=== PATIENT | male | born 1955 | race Caucasian/White ===

== ENCOUNTER 2017-12-27 17:05 | Inpatient (IN) | payer BC, OTHER ==
[~2017-12-27] VITALS: Ht 190.5 cm; Wt 142.9 kg
--- NOTE | 2017-12-27 17:56 | DIAGNOSTIC IMAGING REPORT ---
CHEST ONE VIEW PORTABLE CLINICAL HISTORY: 62 years-old Male presenting with CHEST PAIN. TECHNIQUE: Portable upright AP view of the chest was obtained. COMPARISON: None. FINDINGS: Atherosclerosis of aortic arch. Cardiac silhouette moderately enlarged. Pulmonary vascular prominence. No focal opacity. No large effusion or pneumothorax. Degenerative changes of the thoracic spine. Upper abdomen normal. IMPRESSION: 1. Cardiomegaly with possible volume overload. No other convincing evidence of acute cardiopulmonary disease. Electronically signed by: Julien Llamas M.D. 12/27/2017 5:54 PM Dictated Date/Time: 12/27/2017 5:53 PM
[2017-12-27 18:07] LABS: BASO % 0.3 %; BASO ABS # 0.02 K/uL (0-0.2); EOS % 0.5 %; EOS ABS # 0.04 K/uL (0-0.5); HEMATOCRIT 46.3 % (42-52); HEMOGLOBIN 16.1 g/dL (14.0-18.0); IG# 0.01 K/uL (0.00-0.02); LYMPH % 14.5 %; LYMPH ABS # 1.06 K/uL (1.2-3.4); MEAN CELL VOLUME 92.8 fL (80-100); MEAN CORPUSCULAR HEMOGLOBIN 32.3 pg (25-34); MEAN CORPUSCULAR HGB CONC 34.8 g/dl (32-36); MEAN PLATELET VOLUME 10.3 fL (7.4-10.4); MONO % 7.5 %; MONO ABS # 0.55 K/uL (0.11-0.59); NEUT % 77.1 %; NEUT ABS # 5.62 K/uL (1.4-6.5); PLATELET COUNT 184 K/uL (130-400); RED CELL DISTRIBUTION WIDTH CV 13.6 % (11.5-14.5); RED CELL DISTRIBUTION WIDTH SD 46.3 fL (36.4-46.3)
[2017-12-27 18:23] LABS: ALBUMIN 4.1 gm/dl (3.4-5.0); AST/SGOT 38 U/L (15-37); BLOOD UREA NITROGEN 17 mg/dl (7-18); CALCIUM 8.8 mg/dl (8.5-10.1); CARBON DIOXIDE 26 mmol/L (21-32); GLUCOSE 103 mg/dl (70-99); LIPASE 146 U/L (73-393); POTASSIUM 4.5 mmol/L (3.5-5.1); SODIUM 140 mmol/L (136-145)
[2017-12-27 18:28] LABS: ALKALINE PHOSPHATASE 86 U/L (45-117); ALT/SGPT 42 U/L (12-78); TOTAL PROTEIN 7.9 gm/dl (6.4-8.2)
[2017-12-27] MEDS ORDERED: WARF10TA4 PO (18:41)
[2017-12-27 18:49] LABS: INR 4.6 (0.9-1.1); PTT PATIENT 36.8 SECONDS (21.0-31.0)
[2017-12-27] MEDS ORDERED: METOPROLOL TARTRATE 1 MG/ML VIAL IV STA (19:19)
--- NOTE | 2017-12-27 21:39 | EMERGENCY ROOM VISIT NOTE ---
ED Visit Note First contact with patient: 17:15 HPI: 62-year-old gentleman with a remote past medical history of cardiomyopathy in the setting of pneumonia 2002 (which patient reports resolved on subsequent evaluations), A. fib on Coumadin since emergency department with upper abdominal lower chest fullness that began at 1400. Denies shortness of breath, sweating, vomiting, radiation. 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 Plan: EKG afib RVR 150 no gross ischemia, CXR with cardiomegaly and ?vascular prominence however no respiratory sx and 96%RA, Trop negative 4 hours after onset of sx. BNP wnl. INR supratherapeutic 4.6, denies any bleeding. Sx resolved after rate control with Lopressor. GONZALES Fernández paged cardiology on-call , Dr. De León, whom I spoke with as well and recommends/we agree for admission for further cardiac r/o given prior history and no recent cardiology f/u. Patient is agreeable with admission. I performed Bedside echo and views severely limited 2/2 body habitus. STEPHON 10.1mm suggesting mildly reduced EF but again views limited. No gross pericardial effusion. GONZALES Fernández to d/w hospitalist for admission. I reviewed the patient's past medical history, medications, and visit nursing notes. I discussed the case with the physician assistant prosecuting attorney, examined the patient, and agree with the findings and plan as documented in the physician assistants note unless otherwise noted here by me.
--- NOTE | 2017-12-27 21:39 | History and Physical ---
History & Physical Date & Time of Service: December 27, 2017 at 21:39 Chief Complaint: Gi Vpset And Fullness Primary Care Physician: Shlomo Rubio M.D. History of Present Illness Source: patient This is a 62-year-old male history of paroxysmal A. fib dilated cardiomyopathy who has not been following up with cardiology/family practice doctor for last 5- 6 years Diagnosed with atrial fibrillation in 2005, Seen by cardiology Dr. Sidhu Patient stopped following with cardiology and his family physician Last visit with family physician was in 2005 And was prescribed Toprol XL 50 mg daily Stopped taking them after few months as it made him feeling more weak and tired Patient continued with Coumadin anticoagulation Follows with [facility] coagulation clinic Today presents with substernal heaviness discomfort/was eating a sandwich at lunch in a hurry and felt food got stuck The feeling was heaviness and bloating remained persistently As of any chest pain, no nausea vomiting On arrival to ER patient's was in rapid A. fib with heart rate of 150 Given IV Lopressor 5 mg 1 Heart rate improves to 80-90 with persistent rhythm of atrial fibrillation INR 4.1 Will be admitted to telemetry for Further cardiac workup Past Medical/Surgical History Medical Problems: (1) Atrial Fibrillation Surgical Problems: (1) No history of previous surgery Family History FH: heart disease Social History Smoking Status: Never Smoker Multi-Drug Resistant Organisms History of MDRO: No Allergies Coded Allergies: No Known Allergies (Verified , 12/27/17) Home Medications Scheduled Warfarin Sod (Jantoven), 10 MG PO DAILY Review of Systems Constitutional: No fever, No chills, No sweats, No weight loss, No weakness, No fatigue, No problem reported Eyes: No worsening of vision, No eye pain, No redness, No discharge, No diplopia, No problem reported ENT: No hearing loss, No unusual epistaxis, No nasal symptoms, No sore throat, No tinnitus, No dental problems, No trouble swallowing, No problem reported Respiratory: No cough, No sputum, No wheezing, No shortness of breath, No dyspnea on exertion, No dyspnea at rest, No hemoptysis, No problem reported Cardiovascular: + chest pain (Chest heaviness) Abdomen: + nausea Musculoskeletal: No joint pain, No muscle pain, No swelling, No calf pain, No problem reported Genitourinary - Male: No hematuria, No dysuria, No urinary frequency, No urinary urgency, No urinary hesitancy, No urinary retention, No urinary incontinence, No penile discharge, No lesions, No impotence, No problem reported Neurologic: No memory loss, No paralysis, No weakness, No numbness/tingling, No vertigo, No balance problems, No problem reported Psychiatric: No depression symptoms, No anhedonism, No anxiety, No insomnia, No substance abuse, No problem reported Physical Exam Vital Signs Date Time Temp Pulse Resp B/P (MAP) Pulse Ox O2 Delivery O2 Flow Rate FiO2 12/27/17 21:24 83 18 152/112 96 Room Air 12/27/17 20:08 86 18 157/111 96 Room Air 12/27/17 19:48 87 18 151/108 12/27/17 19:35 120 182/108 12/27/17 19:31 120 182/108 12/27/17 18:42 125 129/111 96 Room Air 12/27/17 18:10 120 23 96 Room Air 12/27/17 17:49 138 12/27/17 17:41 97 Room Air 12/27/17 17:09 36.7 114 18 146/77 98 Room Air General Appearance: no apparent distress Head: normocephalic, atraumatic Eyes: sclerae normal Neck: no carotid bruits, trachea midline Respiratory/Chest: + rales Cardiovascular: no murmur, normal peripheral pulses, + irregularly irregular Abdomen/GI: normal bowel sounds, non tender, soft Extremities/Musculoskelatal: no calf tenderness, normal capillary refill, no pedal edema Neurologic/Psych: no motor/sensory deficits, alert, oriented x 3 Diagnostics Laboratory Results Results Past 24 Hours Test 12/27/17 17:55 Range/Units White Blood Count 7.30 4.8-10.8 K/uL Red Blood Count 4.99 4.7-6.1 M/uL Hemoglobin 16.1 14.0-18.0 g/dL Hematocrit 46.3 42-52 % Mean Corpuscular Volume 92.8 80-100 fL Mean Corpuscular Hemoglobin 32.3 25-34 pg Mean Corpuscular Hemoglobin Concent 34.8 32-36 g/dl Platelet Count 184 130-400 K/uL Mean Platelet Volume 10.3 7.4-10.4 fL Neutrophils (%) (Auto) 77.1 % Lymphocytes (%) (Auto) 14.5 % Monocytes (%) (Auto) 7.5 % Eosinophils (%) (Auto) 0.5 % Basophils (%) (Auto) 0.3 % Neutrophils # (Auto) 5.62 1.4-6.5 K/uL Lymphocytes # (Auto) 1.06 1.2-3.4 K/uL Monocytes # (Auto) 0.55 0.11-0.59 K/uL Eosinophils # (Auto) 0.04 0-0.5 K/uL Basophils # (Auto) 0.02 0-0.2 K/uL RDW Standard Deviation 46.3 36.4-46.3 fL RDW Coefficient of Variation 13.6 11.5-14.5 % Immature Granulocyte % (Auto) 0.1 % Immature Granulocyte # (Auto) 0.01 0.00-0.02 K/uL Prothrombin Time 46.4 9.0-12.0 SECONDS Prothromb Time International Ratio 4.6 0.9-1.1 Activated Partial Thromboplast Time 36.8 21.0-31.0 SECONDS Partial Thromboplastin Ratio 1.4 D-Dimer < 190 0-500 ug/L FEU Sodium Level 140 136-145 mmol/L Potassium Level 4.5 3.5-5.1 mmol/L Chloride Level 108 98-107 mmol/L Carbon Dioxide Level 26 21-32 mmol/L Anion Gap 6.0 3-11 mmol/L Blood Urea Nitrogen 17 7-18 mg/dl Creatinine 1.10 0.60-1.40 mg/dl Est Creatinine Clear Calc Drug Dose 107.6 ml/min Estimated GFR () 83.5 Estimated GFR (Non- 72.1 BUN/Creatinine Ratio 15.5 10-20 Random Glucose 103 70-99 mg/dl Calcium Level 8.8 8.5-10.1 mg/dl Magnesium Level 2.0 1.8-2.4 mg/dl Total Bilirubin 0.5 0.2-1 mg/dl Direct Bilirubin 0.2 0-0.2 mg/dl Aspartate Amino Transf (AST/SGOT) 38 15-37 U/L Alanine Aminotransferase (ALT/SGPT) 42 12-78 U/L Alkaline Phosphatase 86 45-117 U/L Total Creatine Kinase 235 39-308 U/L Troponin I < 0.015 0-0.045 ng/ml Pro-B-Type Natriuretic Peptide 432 0-900 pg/ml Total Protein 7.9 6.4-8.2 gm/dl Albumin 4.1 3.4-5.0 gm/dl Lipase 146 73-393 U/L Diagnostic Radiology CHEST ONE VIEW PORTABLE CLINICAL HISTORY: 62 years-old Male presenting with CHEST PAIN. TECHNIQUE: Portable upright AP view of the chest was obtained. COMPARISON: None. FINDINGS: Atherosclerosis of aortic arch. Cardiac silhouette moderately enlarged. Pulmonary vascular prominence. No focal opacity. No large effusion or pneumothorax. Degenerative changes of the thoracic spine. Upper abdomen normal. IMPRESSION: 1. Cardiomegaly with possible volume overload. No other convincing evidence of acute cardiopulmonary disease. EKG Atrial fibrillation Left anterior fascicular block Cannot rule out Inferior infarct (masked by fascicular block?) , age undetermined Cannot rule out Anterior infarct , age undetermined Abnormal ECG When compared with ECG of 27-DEC-2017 17:40, (unconfirmed) Vent. rate has decreased BY 51 BPM Nonspecific T wave abnormality now evident in Inferior leads Nonspecific T wave abnormality no longer evident in Lateral leads Impression Assessment and Plan AFIB RVR : hx of chronic A. fib dilated cardiomyopathy dx in 2005 has not been followed with Cardiology for the past 12yrs Chronic A. fib refractory to DC cardioversion, and was treated with amiodarone for a few months, was discontinued and started with beta-steven for concern of pulmonary toxicity/started on Toprol-XL 50 mg daily On anticoagulation with Coumadin Echo on 08/17/2005: 1. Study done with patient in atrial fibrillation. 2. Ventricular wall motion and overall left ventricular systolic function are on the lower limit of normal, estimated ejection fraction 45-50% 3. No segmental left ventricular wall motion abnormality noted 4. Left ventricular is mildly enlarged 5. Left atrium is slightly enlarged 6. Trace mitral regurgitation with no definite structural abnormalities of the mitral valve apparatus Cardiac stress test on 03/13/2006: Resting EKG rhythm atrial fibrillation, nonspecific ST-T wave abnormalities Patient had no chest pain or other anginal symptoms. Exercise limited by generalized fatigue Patient exercised using a standard Serge protocol for a total of 8 minutes with maximum exercise for 2 minutes at 3.5 mph with 14% grade Maximum heart rate achieved 2 oh 3 bpm representing 119% of the maximum age- predicted heart rate Maximum BP with exercise 168/74 Atrial fibrillation persisted throughout exercise: There was no episode of aberrant ventricular response Conclusion No definite stress EKG finding to suggest exercise-induced myocardial infarction ordered for Lopressor 25 mg PO QID PRN IV Lopressor for HR > 100 hold Coumadin as INR > 4 serial cardiac markers /ECHO ordered cardiology consulted NPO past midnight for possible cardioversion in AM COAGULOPATHY : Patient been taking Coumadin as per directed by maryann porter given including There is elevated but then f4 No evidence of bleeding complication Hold Coumadin PT/INR daily ALCOHOL ABUSE Admits of drinking heavily -5-6 glasses of alcohol ("all sorts of drink"-beer/ wine/vodka) Last drink was yesterday Denies of being anxious/no tremor noted Denies of alcohol withdrawal episode in past Patient is placed on DT precaution IV Ativan as per alcohol withdrawal/AW SS protocol Neurontin avoided in the setting of cardiac arrhythmia Order for thiamine p.o. Banana bag not ordered at his chest x-ray shows pulmonary congestion High-risk for decompensated CHF in the setting of chronic/rapid A. fib Patient is counseled against heavy alcohol use which may lead to End-stage liver disease/alcoholic cardiomyopathy/refractory cardiac arrhythmia/ stroke Patient wants to try himself to quit Not open for alcohol rehab CODE STATUS : FULL CODE DVT PROPHYLAXIS INR elevated DISPOSITION ; Expect to be discharged home when medically stable Medicine follow-up with Dr. Rubio Patient will need to established follow-ups with [facility] cardiology Level of Care Telemetry Resuscitation Status FULL RESUSCITATION VTE Prophylaxis Given or contraindicated: Other Anticoagulation (IV HEPARIN )
[2017-12-27] MEDS ORDERED: ALUMINUM/MAGNESIUM/SIMETH (MAALOX MAX) 30 ML UDC PO PRN (21:45)
[2017-12-27] MEDS ORDERED: MAGNESIUM HYDROXIDE SUSP 30 ML UDC PO PRN (21:45)
[2017-12-27] MEDS ORDERED: NITROGLYCERIN 0.4 MG SL PER TAB CHARGE SL PRN (21:45)
[2017-12-27] MEDS ORDERED: ONDANSETRON INJ 2 MG/ML 2 ML VIAL IV PRN (21:45)
[2017-12-27] MEDS ORDERED: POLYETHYLENE (MIRALAX) 17 GM PACK PO PRN (21:45)
[2017-12-27] MEDS ORDERED: METOPROLOL TARTRATE 1 MG/ML VIAL IV PRN (21:45)
[2017-12-27] MEDS ORDERED: ACETAMINOPHEN 325 MG TAB PO PRN (21:45)
[2017-12-27 22:34] VITALS: BP 159/99; PULSE 84; TEMP 36.7; O2SAT 98; Ht 190.5 cm; Wt 142.9 kg
[2017-12-27] MEDS ORDERED: LORAZEPAM 2 MG/ML 1 ML VIAL IV PRN (22:45)
--- NOTE | 2017-12-27 23:17 | EMERGENCY ROOM VISIT NOTE ---
History First contact with patient: 17:15 Chief Complaint: GI ASSESSMENT Stated Complaint: GI VPSET AND FULLNESS Nursing Triage Summary: Ate a sandwich at 1400 and has felt "a fullness in his esophagus" since then. Hx of a fib, worried it is related. Also c/o tingling in left evangelical, though denies headache. Denies CP or dyspnea. History of Present Illness The patient is a 62 year old male who presents to the Emergency Room with complaints of chest fullness after eating lunch approximately 3.5 hours ago. The patient reports that he and his were in a hurry, and ate lunch prickly. Within approximately 1-1/2 hours after eating, he started to develop this discomfort. He denies pressure or pain, describing it as "a fullness". The patient reports a history of atrial fibrillation. He has not had any cardiology follow-up in several years. His family doctor is Dr. Rubio. The patient takes Coumadin 10 mg daily, and reports that his INR levels have been variable. The patient reports that he did a lot of yard work this morning without any discomfort. He denies any discomfort radiating into the back, abdomen or neck. He denies shortness of breath, nausea or diaphoresis. The patient currently denies any pain. Review of Systems HEENT: Denies dizziness, visual problems, hearing loss, tinnitus. Denies difficulty swallowing or oral lesions. PULMONARY: Denies cough, shortness of breath, sputum production or hemoptysis. CARDIOVASCULAR: Denies palpitations, dyspnea on exertion, orthopnea or peripheral edema. Otherwise see HPI. GASTROINTESTINAL: Denies diarrhea, constipation, nausea, vomiting, or abdominal pain. GENITOURINARY: Denies dysuria, frequency, urgency or nocturia. NEUROLOGIC: Denies history of epilepsy, CVA, TIA or chronic headaches. MUSCULOSKELETAL: Denies history of joint tenderness/swelling. SKIN: Denies rashes or lesions. PSYCHIATRIC: Denies history of depression or mental illness. ENDOCRINE: Denies history of diabetes or thyroid disorders. Past Medical/Surgical History Medical Problems: (1) A-fib (2) Atrial Fibrillation Surgical Problems: (1) No history of previous surgery Family History FH: heart disease Social History Smoking Status: Never Smoker Alcohol Use: occasionally Marital Status: Occupation Status: unemployed Current/Historical Medications Scheduled Warfarin Sod (Jantoven), 10 MG PO DAILY Physical Exam Vital Signs Date Time Temp Pulse Resp B/P (MAP) Pulse Ox O2 Delivery O2 Flow Rate FiO2 12/27/17 21:24 83 18 152/112 96 Room Air 12/27/17 20:08 86 18 157/111 96 Room Air 12/27/17 19:48 87 18 151/108 12/27/17 19:35 120 182/108 12/27/17 19:31 120 182/108 12/27/17 18:42 125 129/111 96 Room Air 12/27/17 18:10 120 23 96 Room Air 12/27/17 17:49 138 12/27/17 17:41 97 Room Air 12/27/17 17:09 36.7 114 18 146/77 98 Room Air Physical Exam CONSTITUTIONAL: Healthy and well nourished. Alert and oriented X 3 with positive affect. Patient does not appear in any acute distress. HEENT: Normocephalic, atraumatic. Pupils equal, round and reactive. No conjunctival injection/pallor or scleral icterus. NECK: Full active range of motion without discomfort. No JVD or carotid bruits appreciated. RESPIRATORY: Clear to auscultation bilaterally with no wheezing, crackles, rhonchi or stridor. CARDIOVASCULAR: Irregular rate and rhythm with no murmurs, rubs or gallops. GASTROINTESTINAL: Bowel sounds present in all quadrants. No epigastric tenderness to palpation. No obvious hepatosplenomegaly. Negative CVA tenderness. Negative Evans sign. MUSCULOSKELETAL: Full range of motion of all joints without discomfort. INTEGUMENTARY: No rash or other significant dermatologic conditions noted. HEMATOLOGIC: No ecchymosis or petechiae noted. NEUROLOGIC: No focal neurologic deficits noted. Medical Decision & Procedures ER Provider Diagnostic Interpretation: My interpretation of an ECG shows atrial fibrillation with a rapid ventricular response of [address] elevations noted. A repeat ECG approximately 2 hours after she was a decreased rate of 100 bpm. My interpretation of a portable chest x-ray shows cardiomegaly with possible volume overload. No pneumothorax or consolidations noted. Radiologist report is as follows: CHEST ONE VIEW PORTABLE CLINICAL HISTORY: 62 years-old Male presenting with CHEST PAIN. TECHNIQUE: Portable upright AP view of the chest was obtained. COMPARISON: None. FINDINGS: Atherosclerosis of aortic arch. Cardiac silhouette moderately enlarged. Pulmonary vascular prominence. No focal opacity. No large effusion or pneumothorax. Degenerative changes of the thoracic spine. Upper abdomen normal. IMPRESSION: 1. Cardiomegaly with possible volume overload. No other convincing evidence of acute cardiopulmonary disease. Laboratory Results 12/27/17 17:55 Red Blood Count 4.99, Mean Corpuscular Volume 92.8, Mean Corpuscular Hemoglobin 32.3, Mean Corpuscular Hemoglobin Concent 34.8, Mean Platelet Volume 10.3, Neutrophils (%) (Auto) 77.1, Lymphocytes (%) (Auto) 14.5, Monocytes (%) (Auto) 7.5, Eosinophils (%) (Auto) 0.5, Basophils (%) (Auto) 0.3, Neutrophils # (Auto) 5.62, Lymphocytes # (Auto) 1.06, Monocytes # (Auto) 0.55, Eosinophils # (Auto) 0.04, Basophils # (Auto) 0.02 12/27/17 17:55 Test 12/27/17 17:55 White Blood Count 7.30 K/uL (4.8-10.8) Red Blood Count 4.99 M/uL (4.7-6.1) Hemoglobin 16.1 g/dL (14.0-18.0) Hematocrit 46.3 % (42-52) Mean Corpuscular Volume 92.8 fL (80-100) Mean Corpuscular Hemoglobin 32.3 pg (25-34) Mean Corpuscular Hemoglobin Concent 34.8 g/dl (32-36) Platelet Count 184 K/uL (130-400) Mean Platelet Volume 10.3 fL (7.4-10.4) Neutrophils (%) (Auto) 77.1 % Lymphocytes (%) (Auto) 14.5 % Monocytes (%) (Auto) 7.5 % Eosinophils (%) (Auto) 0.5 % Basophils (%) (Auto) 0.3 % Neutrophils # (Auto) 5.62 K/uL (1.4-6.5) Lymphocytes # (Auto) 1.06 K/uL (1.2-3.4) Monocytes # (Auto) 0.55 K/uL (0.11-0.59) Eosinophils # (Auto) 0.04 K/uL (0-0.5) Basophils # (Auto) 0.02 K/uL (0-0.2) RDW Standard Deviation 46.3 fL (36.4-46.3) RDW Coefficient of Variation 13.6 % (11.5-14.5) Immature Granulocyte % (Auto) 0.1 % Immature Granulocyte # (Auto) 0.01 K/uL (0.00-0.02) Prothrombin Time 46.4 SECONDS (9.0-12.0) Prothromb Time International Ratio 4.6 (0.9-1.1) Activated Partial Thromboplast Time 36.8 SECONDS (21.0-31.0) Partial Thromboplastin Ratio 1.4 D-Dimer < 190 ug/L FEU (0-500) Anion Gap 6.0 mmol/L (3-11) Est Creatinine Clear Calc Drug Dose 107.6 ml/min Estimated GFR () 83.5 Estimated GFR (Non- 72.1 BUN/Creatinine Ratio 15.5 (10-20) Calcium Level 8.8 mg/dl (8.5-10.1) Magnesium Level 2.0 mg/dl (1.8-2.4) Total Bilirubin 0.5 mg/dl (0.2-1) Direct Bilirubin 0.2 mg/dl (0-0.2) Aspartate Amino Transf (AST/SGOT) 38 U/L (15-37) Alanine Aminotransferase (ALT/SGPT) 42 U/L (12-78) Alkaline Phosphatase 86 U/L (45-117) Total Creatine Kinase 235 U/L (39-308) Troponin I < 0.015 ng/ml (0-0.045) Pro-B-Type Natriuretic Peptide 432 pg/ml (0-900) Total Protein 7.9 gm/dl (6.4-8.2) Albumin 4.1 gm/dl (3.4-5.0) Lipase 146 U/L (73-393) The above labs were reviewed. Repeat troponin II hours apart were normal. D- dimer and BNP are normal. Remaining labs were also grossly normal. Medications Administered Medications (Trade) Dose Ordered Sig/Willis Route Start Time Stop Time Status Last Admin Dose Admin Metoprolol Tartrate (Lopressor Iv) 5 mg NOW STAT IV 12/27/17 19:19 12/27/17 19:22 DC 12/27/17 19:31 5 MG ED Course Patient history and physical exam were performed. Nurse's notes were reviewed. Vital signs were reviewed the patient is mildly tachycardic at 114 bpm. BP is mildly elevated at 146/77, and O2 saturation is normal. IV access was established, and labs were drawn. ECG shows atrial fibrillation with rapid ventricular response at 151 bpm. A portable chest x-ray shows possible volume overload and cardiomegaly. Labs were reviewed to show a normal BNP, d-dimer and troponin that was repeated 2 hours apart. Repeat ECG at 2 hours was also normal. Portable chest x-ray shows cardiomegaly with possible volume overload. 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 The case was discussed further with Dr. Liu, ED attending physician. The patient was administered Lopressor 5 mg IV. This reduced his heart rate to between 80 and 100 bpm. The patient remained asymptomatic while in the emergency department. After case review, Dr. Liu suggested cardiology consultation. Dr. Liu also evaluated the patient and performed a bedside echocardiogram. I discussed the case further with Hugo Esposito printer slotter operator, who also discussed the case further with Dr. Liu, and suggested hospitalist evaluation. The case was then discussed with the Hugo Nowak hospitalist team. Please see their dictation for further treatment and final disposition. Medical Decision Patient presents to the emergency department with complaint of chest fullness after eating lunch this afternoon. The patient reports that he was very active this morning, doing yard work and did not have any chest discomfort. His workup this evening is not suggestive of acute myocardial infarction, pulmonary embolus, pneumothorax or pneumonia. The patient does have volume overload and cardiomegaly, as well as atrial fibrillation with rapid ventricular response. Review of prior medical records shows that the patient has had prior cardiomyopathy with ejection fraction of 35% with the patient reports was attributed to a pneumonia. He reports that his echocardiogram did improve over time. Unfortunately, the patient has not had regular follow-up with his PCP or printer slotter operator. The patient is also supratherapeutic with his Coumadin level. Medication Reconcilliation Current Medication List: was personally reviewed by me Blood Pressure Screening Patient's blood pressure: Elevated blood pressure Impression Primary Impression: Atrial fibrillation with rapid ventricular response Additional Impressions: Elevated blood pressure reading with diagnosis of hypertension Supratherapeutic INR Departure Information Referrals Andrés Johnson Jr,D.O. (PCP) Patient Instructions [facility] Problem Qualifiers
[2017-12-27] MEDS: THIAMINE HCL 100 MG TAB PO SCH (23:21)
[2017-12-27] MEDS: METOPROLOL TARTRATE 25 MG TAB PO SCH (23:22)
[2017-12-27 23:38] VITALS: BP 159/91; PULSE 73; TEMP 36.5; O2SAT 95
[2017-12-27 23:41] LABS: PHOSPHORUS 2.5 mg/dl (2.5-4.9)
[2017-12-28 03:49] VITALS: BP 136/91; PULSE 59; TEMP 36.6; O2SAT 98
[2017-12-28 06:44] LABS: INR 3.9 (0.9-1.1)
[2017-12-28 07:01] VITALS: BP 157/91; PULSE 63; TEMP 36.8; O2SAT 98
[2017-12-28 07:03] LABS: BLOOD UREA NITROGEN 15 mg/dl (7-18); CALCIUM 8.8 mg/dl (8.5-10.1); CARBON DIOXIDE 29 mmol/L (21-32); CREATININE 1.01 mg/dl (0.60-1.40); GLUCOSE 103 mg/dl (70-99); POTASSIUM 4.1 mmol/L (3.5-5.1); SODIUM 142 mmol/L (136-145)
[2017-12-28 07:08] LABS: CHOLESTEROL 166 mg/dl (0-200); LDL CHOLESTEROL CALCULATED 90 mg/dl; PHOSPHORUS 2.7 mg/dl (2.5-4.9)
--- NOTE | 2017-12-28 07:25 | DIAGNOSTIC IMAGING REPORT ---
CHEST ONE VIEW PORTABLE CLINICAL HISTORY: Atrial Fibrillation/chf COMPARISON STUDY: 12/27/2017 FINDINGS: The heart remains enlarged. There is no focal pulmonary consolidation. There are no pleural effusions. There is slight vascular prominence without evidence of overt failure. IMPRESSION: Stable cardiomegaly. No evidence of focal pulmonary consolidation Electronically signed by: Arya Sheehan M.D. 12/28/2017 7:24 AM Dictated Date/Time: 12/28/2017 7:23 AM
[2017-12-28] MEDS: METOPROLOL TARTRATE 25 MG TAB PO SCH (08:17)
[2017-12-28] MEDS: THIAMINE HCL 100 MG TAB PO SCH (08:18)
--- NOTE | 2017-12-28 08:42 | ECHOCARDIOGRAM REPORT ---
*NOTICE TO RECEIVING LIBERTARIAN AGENCY This information is strictly Confidential and protected under [place] law. [place] law prohibits you from making any further disclosure of this information unless further disclosure is expressly permitted by the written consent of the person to whom it pertains or is authorized by law. A general authorization for the release of medical or other information is not sufficient for this purpose. Hospital accepts no responsibility if the information is made available to any other person, INCLUDING THE PATIENT. Interpretation Summary * Name: JOSEFA HULL Study Date: 12/28/2017 06:32 AM BP: 136/91 mmHg * Patient Location: [facility] HR: 59 * : 1955 (M/d/yyyy) Gender: Male Height: 75 in * Age: 62 yrs Ethnicity: CA Weight: 315 lb * Ordering Physician: Cherelle Byrnes * Performed By: Yasmin Hilton RDCS * * Reason For Study: A-FIB * BSA: 2.7 m2 * -- Conclusions -- * Technically difficult study due to patient body habitus. * Normal LV chamber size with mild concentric LVH. * Normal LV systolic function, EF 55-60%. * No segmental left ventricular wall motion abnormalities are noted. * Poorly visualized valvular structures without significant stenosis or regurgitation by Doppler. Procedure Details * A complete two-dimensional transthoracic echocardiogram was performed (2D, M-mode, Doppler and color flow Doppler). * The study was technically difficult. * There were technical limitations due to patient'sbody habitus * A contrast injection of Definity was performed to improve assessment of LV function. * Contrast was injected into an intravenous site in the left arm. * One vial of Definity ultrasound contrast was diluted in normal saline to a total volume of 10 ml. A total of '3.5' ml of solution was administered during imaging. * Lot # [id number] of Definity utilized for procedure. * Expiration date 12/06. Left Ventricle * The left ventricle is normal in size. * There is mild concentric left ventricular hypertrophy. * Ejection Fraction = 55-60%. * Left ventricular systolic function is normal. * No segmental left ventricular wall motion abnormalities are noted. * The left ventricular wall motion is normal. Right Ventricle * The right ventricular cavity size is normal (basal dimension <4.2 cm in right ventricular apical 4-chamber view). * The right ventricular systolic function is normal as assessed by tricuspid annular plane systolic excursion (TAPSE) (normal >1.5 cm). Atria * The left atrium is not well visualized. * Right atrium not well visualized. Mitral Valve * The mitral valve is not well visualized. * There is no mitral valve stenosis. * There is no mitral regurgitation noted. Tricuspid Valve * The tricuspid valve is not well visualized. * There is no tricuspid stenosis. * No tricuspid regurgitation. Aortic Valve * The aortic valve is not well visualized. * No hemodynamically significant valvular aortic stenosis. * There is no significant aortic regurgitation. Pulmonic Valve * The pulmonary valve is not well seen, but the Doppler examination is normal without significant regurgitation or stenosis. Great Vessels * The aortic root is normal size. Pericardium/Pleural * There is no pericardial effusion. MMode 2D Measurements and Calculations IVSd 1.2 cm IVSs 1.7 cm LVIDd 5.7 cm LVIDs 3.7 cm LVPWd 1.1 cm LVPWs 2.6 cm IVS/LVPW 1.0 FS 35.1 % EDV(Teich) 163.1 ml ESV(Teich) 59.3 ml EF(Teich) 63.6 % EDV(cubed) 189.8 ml ESV(cubed) 51.9 ml EF(cubed) 72.6 % % IVS thick 50.8 % % LVPW thick 127.5 % LV mass(C)d 275.7 grams LV mass(C)dI 103.6 grams/m\S\2 LV mass(C)s 393.9 grams LV mass(C)sI 148.0 grams/m\S\2 SV(Teich) 103.8 ml SI(Teich) 39.0 ml/m\S\2 SV(cubed) 137.9 ml SI(cubed) 51.8 ml/m\S\2 asc Aorta Diam 3.4 cm LVOT diam 2.1 cm LVOT area 3.6 cm\S\2 LVAd ap4 49.2 cm\S\2 LVLd ap4 10.1 cm EDV(MOD-sp4) 196.0 ml EDV(sp4-el) 203.7 ml LVAs ap4 26.4 cm\S\2 LVLs ap4 7.7 cm ESV(MOD-sp4) 74.8 ml ESV(sp4-el) 76.9 ml EF(MOD-sp4) 61.8 % EF(sp4-el) 62.3 % LVAd ap2 29.1 cm\S\2 LVLd ap2 8.6 cm EDV(MOD-sp2) 80.8 ml EDV(sp2-el) 83.8 ml LVAs ap2 15.8 cm\S\2 LVLs ap2 6.7 cm ESV(MOD-sp2) 30.1 ml ESV(sp2-el) 31.6 ml EF(MOD-sp2) 62.7 % EF(sp2-el) 62.3 % LVLd %diff -17.47 % EDV(MOD-bp) 135.8 ml LVLs %diff -14.93 % ESV(MOD-bp) 49.8 ml EF(MOD-bp) 63.4 % SV(MOD-sp4) 121.2 ml SI(MOD-sp4) 45.5 ml/m\S\2 SV(MOD-sp2) 50.6 ml SI(MOD-sp2) 19.0 ml/m\S\2 SV(MOD-bp) 86.1 ml SI(MOD-bp) 32.3 ml/m\S\2 SV(sp4-el) 126.8 ml SI(sp4-el) 47.7 ml/m\S\2 SV(sp2-el) 52.2 ml SI(sp2-el) 19.6 ml/m\S\2 Doppler Measurements and Calculations MV E max yvonne 97.0 cm/sec MV dec time 0.25 sec Ao V2 max 123.4 cm/sec Ao max PG 6.1 mmHg Ao max PG (full) 3.1 mmHg LIA(V,A) 2.5 cm\S\2 LIA(V,D) 2.5 cm\S\2 LV V1 max PG 3.0 mmHg LV V1 max 87.0 cm/sec PA V2 max 132.1 cm/sec PA max PG 8.5 mmHg TR max yvonne 246.8 cm/sec
[2017-12-28] MEDS ORDERED: ASPIRIN 81 MG ECTAB PO SCH (09:00)
[2017-12-28] MEDS ORDERED: LISINOPRIL 5 MG TAB PO ONE (10:45)
[2017-12-28 11:50] VITALS: BP 167/101; PULSE 60; TEMP 36.4; O2SAT 90
--- NOTE | 2017-12-28 14:15 | EXERCISE STRESS ECHO ---
*NOTICE TO RECEIVING GREEN PARTY AGENCY This information is strictly Confidential and protected under [place] law. [place] law prohibits you from making any further disclosure of this information unless further disclosure is expressly permitted by the written consent of the person to whom it pertains or is authorized by law. A general authorization for the release of medical or other information is not sufficient for this purpose. Hospital accepts no responsibility if the information is made available to any other person, INCLUDING THE PATIENT. Interpretation Summary * Name: JOSEFA HULL Study Date: 12/28/2017 11:17 AM BP: 152/88 mmHg * Patient Location: C.2T\S\S241\S\1 HR: 83 * : 1955 (M/d/yyyy) Gender: Male Height: 75 in * Age: 62 yrs Ethnicity: CA Weight: 315 lb * Ordering Physician: Arslan De León DO * Performed By: Yasmin Hilton RDCS * * Reason For Study: CHEST PAIN * BSA: 2.7 m2 * -- Conclusions -- * Nonischemic exercise stress echocardiogram. * No arrhythmias. * Normal HR and BP response to exercise. * Chest pain was not reproduced. * Below average exercise tolerance. Procedure Details * A contrast injection of Definity was performed to improve assessment of LV function. * Contrast was injected into an intravenous site in the left arm. * One vial of Definity ultrasound contrast was diluted in normal saline to a total volume of 10 ml. A total of '4' ml of solution was administered during imaging. * Lot # [id number] of Definity utilized for procedure. * Expiration date 12/06. * The attending nurse who injected the contrast agent was OTIS MORGAN RN. Stress Parameters * The stress portion of this study was personally supervised by the undersigned interpreting physician. * Rest heart rate was '83' BPM. * Rest blood pressure was '152/88' * Maximum heart rate achieved was 184 bpm. * Maximum heart rate was 115 % of maximum age-predicted heart rate. * Maximum blood pressure was '160/70' * Total exercise time was '6:00' * Maximum exercise MET level achieved was '7.0' METS * Maximum treadmill speed was '2.50' miles per hour. * Maximum treadmill elevation was '12.00'% grade. * Exercise was terminated due to 'target heart rate achieved' * Target heart rate achieved. No symptoms.
--- NOTE | 2017-12-28 14:40 | CARDIOLOGY CONSULTATION ---
DATE OF CONSULTATION: 12/28/2017 CONSULTATION REQUESTED BY: Rik Fernández PA-C REASON FOR CONSULTATION: Chest pain and chronic atrial fibrillation. 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 Sidhu in 2007. He presented to [facility] on 12/27/2017 with a complaint of several hours of chest discomfort. The patient states that he and his are very active in their yard yesterday, on the , doing multiple activities and yard work. While doing yard work, he ate a sandwich and he thinks he might have been eaten a little too fast and shortly thereafter developed chest pressure. He described it as a heaviness in his mid substernal area that did not really radiate, but was associated with some mild nausea. He states that it persisted for several hours even after he stopped work. There is no significant waxing or waning. It just came and stayed there. He denied any associated radiation of the discomfort, shortness of breath, diaphoresis, palpitations, lightheadedness, dizziness, or syncope. After several hours, he became concerned and came into the Emergency Department. In the Emergency Department, he was found to be in atrial fibrillation at 150 beats per minute. He was given IV Lopressor x1 and his symptoms resolved. Currently, he is without complaint at rest and has had no issues overnight. I did discuss the case with both Rik Fernández PA-C as well as Dr. Liu and recommend the patient be admitted. PAST SURGICAL HISTORY: [place] tooth extraction. MEDICAL ILLNESSES: Persistent atrial fibrillation, on chronic Coumadin therapy. SOCIAL HISTORY: Denies any tobacco use. Drinks approximately 5 alcoholic beverages a day either beer, wine, or vodka. He is and lives at home with his . He has 2 grown boys who are in good health. 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 He has just started exercising on a regular basis. REVIEW OF SYSTEMS: As per HPI. All review of systems are reviewed and negative at this time. ALLERGIES: SULFA. MEDICATIONS AN OUTPATIENT: Currently, the patient is only taking Coumadin as directed by the Coumadin clinic. He was previously prescribed Lopressor and simvastatin which he discontinued after feeling well several years ago. PHYSICAL EXAMINATION: VITALS: Temperature 36.4, pulse 60, respiratory rate 12, blood pressure 167/101. GENERAL: Awake, alert, and oriented x3, in no acute distress. HEENT: Normocephalic, atraumatic. Pupils equal, round, and reactive to light and accommodation. Extraocular muscles intact. Anicteric sclerae. Moist mucous membranes. NECK: No JVD, no bruit. CARDIOVASCULAR: Irregularly irregular. I do not appreciate any murmurs, rubs, or gallops. PULMONARY: Clear to auscultation bilaterally. No rales, rhonchi, or wheezing. ABDOMEN: Bowel sounds x4, soft. No rebound, guarding, tenderness. No organomegaly. EXTREMITIES: No clubbing, cyanosis, or edema. +2 pedal pulses bilaterally. SKIN: Warm and dry. TEST RESULTS: A 12-lead EKG performed in the Emergency Department independently reviewed at this time, shows atrial fibrillation with rapid ventricular response at 150 beats per minute, left anterior fascicular block, no significant signs of ischemia. Repeat EKG at 1919 in the Emergency Room again shows atrial fibrillation at 100 beats per minute, left anterior fascicular block, no signs of active ischemia. LABORATORY STUDIES OF SIGNIFICANCE: Troponin negative x3. Total cholesterol of 166, LDL 90, HDL 57, triglycerides 96. IMPRESSION: 1. Chest discomfort with a nonischemic exercise stress echocardiogram. 2. Chronic atrial fibrillation, on chronic Coumadin therapy. 3. Refugee from medical care. RECOMMENDATIONS: It was my pleasure to see Dr. Grissom in consultation today. The patient was counseled given the fact that stress test was nonischemic, that his chest discomfort does not appear to be cardiac in nature, so no further cardiac testing or intervention is necessary at this time. He was encouraged to continue exercising and reduce his alcohol consumption. In terms of his atrial fibrillation, the patient stopped his metoprolol several years ago and has not been seen by a whitewater rafting guide in 20 years. Likely his LV systolic function at rest is normal and he is asymptomatic, so there does not appear to be any complications from this. So at this point, I would like to see a little bit better rate control, so he has been started on metoprolol in the hospital, we will change it to metoprolol succinate 25 mg daily on discharge and I will follow up with him as an outpatient for further control. At the same time, his cholesterol is actually rather well-controlled, so we will hold off on statin therapy given the fact that he did have myalgias with higher dose of simvastatin in the past. Otherwise, I will see him in my office in followup in approximately 3 months. My office will call to arrange. It is okay to discharge the patient to home from a cardiac standpoint. The patient was told in no uncertain terms he absolutely must establish with a primary care physician for his overall wellbeing given the fact he is a 61-year-old male who has not had a PSA, hemoglobin A1c, or colonoscopy and needs preventative care.
[2017-12-28 15:00] VITALS: BP 142/85; PULSE 83; TEMP 36.4; O2SAT 96
--- NOTE | 2017-12-28 16:13 | Progress Note ---
Medicine Progress Note Date & Time of Visit: December 28, 2017 at 16:13 . Subjective Feels well. No chest pain or shortness of breath. Stress test went well. Would like to go home. . Objective Last 8 Hrs Date Time Temp Pulse Resp B/P (MAP) Pulse Ox O2 Delivery O2 Flow Rate FiO2 12/28/17 15:00 36.4 83 18 142/85 (104) 96 Room Air 12/28/17 12:27 Room Air 12/28/17 11:50 36.4 60 20 167/101 (123) 90 Room Air Physical Exam: General- no distress Lungs- clear to auscultation; no respiratory distress Cardiovascular- irregular; no murmur or gallop appreciated; no JVD; no pretibial edema Abdomen- + bowel sounds, soft, nontender Extremities- no cyanosis; no calf tenderness Neuro- alert, oriented Skin- warm & dry . Laboratory Results: Last 24 Hours Test 12/27/17 17:55 12/27/17 23:07 12/28/17 05:50 12/28/17 06:07 White Blood Count 7.30 K/uL Red Blood Count 4.99 M/uL Hemoglobin 16.1 g/dL Hematocrit 46.3 % Mean Corpuscular Volume 92.8 fL Mean Corpuscular Hemoglobin 32.3 pg Mean Corpuscular Hemoglobin Concent 34.8 g/dl Platelet Count 184 K/uL Mean Platelet Volume 10.3 fL Neutrophils (%) (Auto) 77.1 % Lymphocytes (%) (Auto) 14.5 % Monocytes (%) (Auto) 7.5 % Eosinophils (%) (Auto) 0.5 % Basophils (%) (Auto) 0.3 % Neutrophils # (Auto) 5.62 K/uL Lymphocytes # (Auto) 1.06 K/uL Monocytes # (Auto) 0.55 K/uL Eosinophils # (Auto) 0.04 K/uL Basophils # (Auto) 0.02 K/uL RDW Standard Deviation 46.3 fL RDW Coefficient of Variation 13.6 % Immature Granulocyte % (Auto) 0.1 % Immature Granulocyte # (Auto) 0.01 K/uL Prothrombin Time 46.4 SECONDS 39.8 SECONDS Prothromb Time International Ratio 4.6 3.9 Activated Partial Thromboplast Time 36.8 SECONDS Partial Thromboplastin Ratio 1.4 D-Dimer < 190 ug/L FEU Sodium Level 140 mmol/L 142 mmol/L Potassium Level 4.5 mmol/L 4.1 mmol/L Chloride Level 108 mmol/L 108 mmol/L Carbon Dioxide Level 26 mmol/L 29 mmol/L Anion Gap 6.0 mmol/L 5.0 mmol/L Blood Urea Nitrogen 17 mg/dl 15 mg/dl Creatinine 1.10 mg/dl 1.01 mg/dl Est Creatinine Clear Calc Drug Dose 107.6 ml/min 117.2 ml/min Estimated GFR () 83.5 92.6 Estimated GFR (Non- 72.1 79.9 BUN/Creatinine Ratio 15.5 14.9 Random Glucose 103 mg/dl 103 mg/dl Calcium Level 8.8 mg/dl 8.8 mg/dl Phosphorus Level 2.5 mg/dl 2.7 mg/dl Magnesium Level 2.0 mg/dl 2.0 mg/dl Total Bilirubin 0.5 mg/dl Direct Bilirubin 0.2 mg/dl Aspartate Amino Transf (AST/SGOT) 38 U/L Alanine Aminotransferase (ALT/SGPT) 42 U/L Alkaline Phosphatase 86 U/L Total Creatine Kinase 235 U/L Troponin I < 0.015 ng/ml < 0.015 ng/ml < 0.015 ng/ml Pro-B-Type Natriuretic Peptide 432 pg/ml Total Protein 7.9 gm/dl Albumin 4.1 gm/dl Lipase 146 U/L Thyroid Stimulating Hormone (TSH) 2.400 uIu/ml Vitamin B12 Level 219 pg/mL Folate 10.69 ng/mL Ethyl Alcohol mg/dL < 3.0 mg/dl Urine Opiates Screen NEG Urine Methadone, Qualitative NEG Urine Barbiturates NEG Urine Phencyclidine (PCP) Level NEG Ur Amphetamine/Methamphetamine NEG MDMA (Ecstasy) Screen NEG Urine Benzodiazepines Screen NEG Urine Cocaine Metabolite NEG Urine Marijuana (THC) NEG Triglycerides Level 96 mg/dl Cholesterol Level 166 mg/dl HDL Cholesterol 57 mg/dl LDL Cholesterol, Calculated 90 mg/dl VLDL Cholesterol, Calculated 19 mg/dl Cholesterol/HDL Ratio 2.9 Test 12/28/17 13:04 Troponin I < 0.015 ng/ml Assessment & Plan CHEST PAIN Serial troponins negative. EKG demonstrated atrial fibrillation with nonspecific ST, T-wave abnormalities. LDL-c = 90. Cardiology consulted. Echocardiogram demonstrated mild concentric LVH, normal left ventricular systolic function, no segmental wall motion abnormalities, no significant valvular abnormalities. Treadmill exercise stress echocardiogram did not show any evidence of stress- induced ischemia. CHRONIC ATRIAL FIBRILLATION Chronic atrial fibrillation. Presented with persistent atrial fibrillation with rapid ventricular response. Started on metoprolol for rate control. Discharged on metoprolol succinate 25 mg daily. INR was supratherapeutic; warfarin was held. Discharged on reduced dose of warfarin of 7.5 mg daily; follow-up with [facility]. HYPERTENSION Systolic blood pressures as high as 182. Diastolic blood pressures as high as 111. Started on metoprolol and lisinopril. Discharge on metoprolol succinate 25 mg daily and lisinopril 5 mg daily. Follow and titrate therapy. HEALTH MAINTENANCE Patient has not received regular medical care in the recent past. He was advised to establish with a primary care physician to manage his chronic problems and provide health maintenance. VTE PROPHYLAXIS Warfarin. Ambulating. DISPOSITION Discharged to home. Arrangements made for follow-up with Family Medicine at [facility]. . Consultants: Cardiology with Dr. De León. . Procedures: Cardiac monitoring Rest echocardiogram Exercise echocardiogram . Current Inpatient Medications: Current Inpatient Medications Medications (Trade) Dose Ordered Sig/Willis Route Start Time Stop Time Status Last Admin Dose Admin Metoprolol Tartrate (Lopressor Iv) 5 mg Q6H PRN IV 12/27/17 21:45 01/26/18 21:44 Acetaminophen (Tylenol Tab) 650 mg Q4H PRN PO 12/27/17 21:45 01/26/18 21:44 Al Hydrox/Mg Hydrox/Simethicone (Maalox Max Susp) 15 ml Q4H PRN PO 12/27/17 21:45 01/26/18 21:44 Magnesium Hydroxide (Milk Of Magnesia Susp) 30 ml Q12H PRN PO 12/27/17 21:45 01/26/18 21:44 Ondansetron HCl (Zofran Inj) 4 mg Q6H PRN IV 12/27/17 21:45 01/26/18 21:44 Nitroglycerin (Nitrostat Tab) 0.4 mg UD PRN SL 12/27/17 21:45 01/26/18 21:44 Aspirin (Ecotrin Tab) 81 mg QAM PO 12/28/17 09:00 01/27/18 08:59 Polyethylene (Miralax Powder Packet) 17 gm DAILY PRN PO 12/27/17 21:45 01/26/18 21:44 Thiamine HCl (Vitamin B-1 Tab) 100 mg DAILY PO 12/27/17 22:57 01/26/18 22:56 12/28/17 08:18 100 MG Lorazepam (Ativan Inj) 1 mg ONE PRN IV 12/27/17 22:45 Metoprolol Tartrate (Lopressor Tab) 25 mg BID PO 12/28/17 21:00 12/28/17 23:59 Lisinopril (Zestril Tab) 5 mg QAM PO 12/29/17 09:00 01/28/18 08:59 Metoprolol Succinate (Toprol Xl Tab) 25 mg QAM PO 12/29/17 09:00 01/28/18 08:59
[2017-12-28] MEDS ORDERED: CMD5 PO ×2 (16:15→16:21)
[2017-12-28] MEDS ORDERED: WARF10TA PO (16:17)
[2017-12-28] MEDS ORDERED: LSN5 PO (16:21)
[2017-12-28] MEDS ORDERED: TPRSR25 PO (16:21)
--- NOTE | 2017-12-28 16:25 | Discharge Instructions ---
Discharge Instructions Date of Service December 28, 2017. Admission Reason for Admission: atrial fibrillation, chest pain . Discharge Discharge Diagnosis / Problem: atrial fibrillation, chest pain Discharge Goals Goal(s): Improve disease control Activity Recommendations Activity Limitations: resume your previous activity . Instructions / Follow-Up Instructions / Follow-Up APPOINTMENTS: [facility] 01/01/2018 8:00 AM [facility] FAMILY MEDICINE 01/01/2018 11:20 AM Wyatt Mcghee DO Family [facility] CARDIOLOGY Dr. De León Office will contact you with appointment. OTHER INSTRUCTIONS: Seek medical attention if you have: * temperature above 101 * chest pain or trouble breathing * abdominal pain, nausea, vomiting * diarrhea, dark stools or bloody stools * any unanswered questions or concerns Call 911 if symptoms are severe. Call if you have any questions or problems. My cell # is [phone]. You can also reach a [facility] hospitalist on duty at [facility] 24 hours a day by calling [phone]. Please take good care of yourself. Yandel Cameron . Current Hospital Diet Patient's current hospital diet: AHA Diet (Heart Healthy) Discharge Diet Recommended Diet: AHA Diet (Heart Healthy) Pending Studies Studies pending at discharge: no Laboratory Results Lipid Panel Test 12/28/17 06:07 Range/Units Triglycerides Level 96 0-150 mg/dl Cholesterol Level 166 0-200 mg/dl HDL Cholesterol 57 mg/dl Cholesterol/HDL Ratio 2.9 LDL Cholesterol, Calculated 90 mg/dl Medical Emergencies . Who to Call and When: Medical Emergencies: If at any time you feel your situation is an emergency, please call 911 immediately. . Non-Emergent Contact Non-Emergency issues call your: Primary Care Provider, Industrial Renderer, Hospital Doctor . . "Provider Documentation" section prepared by Yandel Cameron. .
[2017-12-28] MEDS ORDERED: METOPROLOL TARTRATE 25 MG TAB PO SCH (21:00)
[2017-12-29] MEDS ORDERED: METOPROLOL SUCC 25MG EXT REL TAB PO SCH (09:00)
[2017-12-29] MEDS ORDERED: LISINOPRIL 5 MG TAB PO SCH (09:00)
--- NOTE | 2017-12-29 09:13 | Discharge Summary ---
Discharge Summary Date of Service December 29, 2017. Discharge Summary Admission Date: December 27, 2017 at 21:42 Discharge Date: December 28, 2017 Discharge Disposition: Home Principal Diagnosis: chest pain OTHER ACUTE / SECONDARY DIAGNOSES: chronic atrial fibrillation with rapid ventricular response hypertension . Procedures: Cardiac monitoring Rest echocardiogram Exercise echocardiogram . Consultations: Cardiology with Dr. De León. . Medication Reconciliation New Medications: Warfarin Sod (Coumadin) 5 Mg Tab 7.5 MG PO DAILY for 30 Days New dose starting 12/29/17. Further dosing as instructed by Anticoagulation Clinic. Lisinopril (Lisinopril) 5 Mg Tab 5 MG PO QAM, #30 TAB 5 Refills Metoprolol Succinate (Metoprolol Succinate ER) 25 Mg Tabcr 25 MG PO QAM, #30 TAB 5 Refills Discontinued Medications: Warfarin Sod (Coumadin) 5 Mg Tab 0 PO UD 7.5 mg Sun, Sun Warfarin Sodium (Coumadin) 10 Mg Tab 0 PO UD, TAB Take 10 mg on Sun, Wed, Th, Sat, Sun. Admission Information HPI (per Admitting provider): This is a 62-year-old male history of paroxysmal A. fib dilated cardiomyopathy who has not been following up with cardiology/family practice doctor for last 5- 6 years Diagnosed with atrial fibrillation in 2005, Seen by cardiology Dr. Sidhu Patient stopped following with cardiology and his family physician Last visit with family physician was in 2005 And was prescribed Toprol XL 50 mg daily Stopped taking them after few months as it made him feeling more weak and tired Patient continued with Coumadin anticoagulation Follows with [facility] Today presents with substernal heaviness discomfort/was eating a sandwich at lunch in a hurry and felt food got stuck The feeling was heaviness and bloating remained persistently As of any chest pain, no nausea vomiting On arrival to ER patient's was in rapid A. fib with heart rate of 150 Given IV Lopressor 5 mg 1 Heart rate improves to 80-90 with persistent rhythm of atrial fibrillation INR 4.1 Will be admitted to telemetry for Further cardiac workup . Physical Exam (per Admitting): General Appearance: no apparent distress Head: normocephalic, atraumatic Eyes: sclerae normal Neck: no carotid bruits, trachea midline Respiratory/Chest: + rales Cardiovascular: no murmur, normal peripheral pulses, + irregularly irregular Abdomen/GI: normal bowel sounds, non tender, soft Extremities/Musculoskelatal: no calf tenderness, normal capillary refill, no pedal edema Neurologic/Psych: no motor/sensory deficits, alert, oriented x 3 Hospital Course CHEST PAIN Patient presented to the ED with chest pressure. Serial troponins negative. EKG demonstrated atrial fibrillation with nonspecific ST, T-wave abnormalities. LDL-c = 90. Cardiology consulted. Echocardiogram demonstrated mild concentric LVH, normal left ventricular systolic function, no segmental wall motion abnormalities, no significant valvular abnormalities. Treadmill exercise stress echocardiogram did not show any evidence of stress- induced ischemia. CHRONIC ATRIAL FIBRILLATION Chronic atrial fibrillation. Presented with persistent atrial fibrillation with rapid ventricular response. Started on metoprolol for rate control. Discharged on metoprolol succinate 25 mg daily. INR was supratherapeutic; warfarin was held. Discharged on reduced dose of warfarin of 7.5 mg daily; follow-up with [facility]. HYPERTENSION Systolic blood pressures as high as 182. Diastolic blood pressures as high as 111. Started on metoprolol and lisinopril. Discharge on metoprolol succinate 25 mg daily and lisinopril 5 mg daily. Follow and titrate therapy. HEALTH MAINTENANCE Patient has not received regular medical care in the recent past. He was advised to establish with a primary care physician to manage his chronic problems and provide health maintenance. VTE PROPHYLAXIS Warfarin. Ambulating. DISPOSITION Discharged to home. Arrangements made for follow-up with Dr. Mcghee. Cardiology follow-up with Dr. De León. . Total time spent on discharge = 35 min. This includes examination of the patient, discharge planning, medication reconciliation, and communication with other providers. . Discharge Instructions Date of Service December 28, 2017. Admission Reason for Admission: atrial fibrillation, chest pain . Discharge Discharge Diagnosis / Problem: atrial fibrillation, chest pain Discharge Goals Goal(s): Improve disease control Activity Recommendations Activity Limitations: resume your previous activity . Instructions / Follow-Up Instructions / Follow-Up APPOINTMENTS: [facility] 01/01/2018 8:00 AM [facility] 01/01/2018 11:20 AM Wyatt Mcghee DO Family Practice [facility] CARDIOLOGY Dr. De León Office will contact you with appointment. OTHER INSTRUCTIONS: Seek medical attention if you have: * temperature above 101 * chest pain or trouble breathing * abdominal pain, nausea, vomiting * diarrhea, dark stools or bloody stools * any unanswered questions or concerns Call 911 if symptoms are severe. Call if you have any questions or problems. My cell # is [phone]. You can also reach a [facility] hospitalist on duty at [facility] 24 hours a day by calling [phone]. Please take good care of yourself. Yandel Cameron . Current Hospital Diet Patient's current hospital diet: AHA Diet (Heart Healthy) Discharge Diet Recommended Diet: AHA Diet (Heart Healthy) Pending Studies Studies pending at discharge: no Laboratory Results Lipid Panel Test 12/28/17 06:07 Range/Units Triglycerides Level 96 0-150 mg/dl Cholesterol Level 166 0-200 mg/dl HDL Cholesterol 57 mg/dl Cholesterol/HDL Ratio 2.9 LDL Cholesterol, Calculated 90 mg/dl Medical Emergencies . Who to Call and When: Medical Emergencies: If at any time you feel your situation is an emergency, please call 911 immediately. . Non-Emergent Contact Non-Emergency issues call your: Primary Care Provider, E Commerce Analyst, Hospital Doctor . . "Provider Documentation" section prepared by Yandel Cameron. . .
== END 2017-12-28 16:28 | disposition home or self-care (01) | DRG 313 ==
LOC: C.EDB 17:06 → C.2T 21:42 → ENRESERV 21:51
PROVIDERS: ADMIT Hospitalist; ATTEND Hospitalist
DX: R07.89 Other chest pain (principal); I42.9 Cardiomyopathy, unspecified; D68.9 Coagulation defect, unspecified; I48.2 Chronic atrial fibrillation; Z79.01 Long term (current) use of anticoagulants; F10.10 Alcohol abuse, uncomplicated; I10 Essential (primary) hypertension

== ENCOUNTER 2023-07-23 21:41 | Observation (INO) ==
[2023-07-23] MEDS ORDERED: SODIUM CHLORIDE 0.9% 1,000 ML IV ONE (22:59)
[2023-07-23 23:10] LABS: Basophils # (auto) 0.03 K/uL (0.00-0.20); Basophils % (auto) 0.4 %; Eosinophils % (auto) 1.2 %; Hematocrit (blood only) 46.4 % (42.0-52.0); Hemoglobin 15.8 g/dl (14.0-18.0); Immature Granulocytes # (auto) 0.05 K/uL (0.01-0.20); Immature Granulocytes % (auto) 0.6 %; Lymphocytes % (auto) 13.6 %; Mean Corpuscular Hemoglobin 31.5 pg (25.0-34.0); Mean Corpuscular Hgb Conc 34.1 g/dL (32.0-36.0); Mean Corpuscular Volume 92.4 fL (80.0-100.0); Monocytes # (auto) 0.85 K/uL (0.11-0.59); Monocytes % (auto) 10.5 %; Neutrophils # (auto) 5.93 K/uL (1.40-6.50); Neutrophils % (auto) 73.7 %; Platelet Count 210 K/uL (130-400); RDW Coefficient of Variation 12.3 % (11.5-14.5); RDW Standard Deviation 41.6 fL (36.4-46.3); Red Blood Count 5.02 M/uL (4.70-6.10); White Blood Count 8.06 K/ul (4.8-10.8)
[2023-07-23 23:28] LABS: Albumin Globulin Ratio 1.4 (0.9-2); Albumin Level 4.3 gm/dl (3.4-5.0); BUN Creatinine Ratio 15.7 (10-20); Bilirubin,Total 0.5 mg/dl (0.2-1.0); Calcium 9.7 mg/dl (8.6-10.3); Creatinine Clr Calc Pharmacy 100.5 ml/min; Est GFR (African American) 88.4 ml/min; Est GFR (Non-African American) 76.2 ml/min; Potassium 4.5 mmol/L (3.5-5.1); Total Protein 7.3 gm/dl (6.0-8.3)
[2023-07-23] MEDS ORDERED: STAT IV Infusion **Titration per Protocol STA (23:29)
[2023-07-23] MEDS ORDERED: dilTIAZem HCl 5 MG/ML 5 ML VIAL IV STA (23:29)
[2023-07-23] MEDS ORDERED: dilTIAZem HCL 125 MG in DEXTROSE 5% 100 ML IV SCH (23:30)
--- NOTE | 2023-07-23 23:33 | Emergency Department Note ---
Impression & Plan Atrial fibrillation with rapid ventricular response, Viral URI ED Provider Note NAME: JOSEFA HULL AGE: 67 SEX: M : 1955 ARRIVES VIA: Walk-In INFORMANT: Patient ED PROVIDER(S): Daniel Purcell DO CHIEF COMPLAINT: shortness of breath HPI: Patient is a 67-year-old male with a past medical history of A-fib on Coumadin who presents to the ER for cough, congestion, postnasal drip as well as the feeling of difficulty with swallowing. He notes that he took all of his medications today. He was positive for COVID on Thanksgiving. His cough has been persistent. He notes he is having more snot/mucus in the back of the throat. Denies any chest pain or shortness of breath. No belly pain, nausea, vomiting or diarrhea. No dysuria, urgency or frequency. No fevers. No other exacerbating or remitting factors. ADDITIONAL HISTORY OBTAINED: Per HPI Chronic Medical/Social Conditions Affecting Care: Per HPI PAST MEDICAL HISTORY:See Below PAST SURGICAL HISTORY:See Below FAMILY HISTORY:See Below SOCIAL HISTORY:See Below HOME MEDICATIONS:See Below ALLERGIES:See Below VITALS:See Below PHYSICAL EXAMINATION: GENERAL: Sitting up in bed, alert, diaphoretic, disheveled EYE EXAM: normal conjunctiva. PERRL and EOM's grossly intact. OROPHARYNX: no exudate, no erythema, lips, buccal mucosa, and tongue normal and mucous membranes are moist NECK: supple, no nuchal rigidity, no adenopathy, non-tender LUNGS: Clear to auscultation. Normal chest wall mechanics HEART: Tachycardic and irregular regular, S1 normal and S2 normal ABDOMEN: abdomen soft, non-tender, normo-active bowel sounds, no masses, no rebound or guarding. UPPER EXTREMITIES: upper extremities are grossly normal. LOWER EXTREMITIES: No pitting edema. NEURO EXAM: Normal sensorium, cranial nerves II-XII grossly intact, normal speech, no gross weakness of arms, no gross weakness of legs. No drift. Finger to nose intact. Gross sensation intact. MEDICAL DECISION MAKING: Patient is a 68-year-old male who presents ER for above-stated complaint. IV was established blood work is obtained. I was called to bedside by staff as he was in A-fib with RVR. Heart rates from the 140s to 160s. Labs show no significant leukocytosis or anemia. INR 1.1/subtherapeutic. BMP on LFTs bilirubin and TSH was unremarkable. Viral panel pending. Chest x-ray without any focal infiltrate. He was placed on Cardizem drip and given a bolus. Heart rate trended down to the low 100s. He was updated at bedside. Discussed case with Dr. Elder and patient was admitted for further workup. External Records Reviewed: Admitted on 12/31/2017 for A-fib with RVR Consults/Care Managements Discussions: Per [facility] Triage Nursing notes reviewed. Limited review of prior medical records performed Vital Signs: reviewed and remarkable for tachycardia Differential diagnosis: Cardiac ischemia, aortic dissection, pulmonary embolism, pneumothorax, pneumonia, pericarditis, myocarditis, esophageal rupture, GERD, cholecystitis, pancreatitis, musculoskeletal, as well as other pathologies. ER treatment provided: See below Diagnostics interpreted by me include EKG and cardiac monitoring as listed below: -Cardiac Monitoring: An order was placed for continuous cardiac monitoring. The monitor shows a rate of 145 with sinus rhythm. -ECG: A-fib RVR rate of 151 Left axis No PVCs QTc 456 -Laboratory studies:Interpreted by me as stated above in MDM and shown below. Imaging studies: Xrays: As interpreted by me: Portable AP upright 1 view of the chest shows no focal infiltrate. CTs show: none Procedures:none Critical Care: I have personally spent 31 minutes of critical care time in the direct management of this patient. This includes bedside care, interpretation of diagnostic studies, and testing, discussion with consultants, patient, and family members, and other required patient management activities. This 31 minutes is in excess of all separately billable procedures. Past Med/Surg History Social History Smoking Status: Never smoker Preferred Language: Mauritian Feels Safe at Home: Yes Allergies Allergies Allergy/AdvReac Type Severity Reaction Status Date / Time No Known Allergies Allergy Unknown Verified 12/27/17 18:40 Home Meds Previous Rx's Medication Instructions Recorded Lisinopril 5 mg PO QAM #30 tabs 12/28/17 Metoprolol Succinate (Metoprolol 25 mg PO QAM #30 tabs 12/28/17 Succinate ER) Warfarin Sod (Coumadin) 7.5 mg PO DAILY 30 days ##0 12/28/17 Results & Data (ED) Vital Signs Vital Signs - 24 hr 07/23/23 22:00 07/23/23 22:49 07/23/23 22:49 Temperature 36.8 C Temperature Source Temporal Artery Scan Pulse Rate 120 H 134 H Pulse Rate from SpO2 Sensor Respiratory Rate 18 Respiratory Effort / Characteristics Non-Labored Spontaneous Respiratory Depth Normal Respiratory Pattern Regular Blood Pressure 138/101 H 109/88 Blood Pressure Mean 113 91 Blood Pressure Position Sitting Pulse Oximetry 97 Oxygen Delivery Method Room Air Sepsis Recent Fever Within 48 Hours No Sepsis New/Unexplained Change in Mental Status N/A Sepsis Action Taken by Nursing No Action Required 07/23/23 22:50 07/23/23 23:00 07/23/23 23:01 Temperature Temperature Source Pulse Rate 169 H 137 H 155 H Pulse Rate from SpO2 Sensor 136 H 117 H 132 H Respiratory Rate 21 22 22 Respiratory Effort / Characteristics Respiratory Depth Respiratory Pattern Blood Pressure 124/104 H Blood Pressure Mean 110 Blood Pressure Position Pulse Oximetry 97 95 95 Oxygen Delivery Method Room Air Sepsis Recent Fever Within 48 Hours Sepsis New/Unexplained Change in Mental Status Sepsis Action Taken by Nursing 07/23/23 23:31 07/24/23 00:00 07/24/23 00:07 Temperature Temperature Source Pulse Rate 136 H 114 H 138 H Pulse Rate from SpO2 Sensor 72 85 Respiratory Rate 20 22 Respiratory Effort / Characteristics Respiratory Depth Respiratory Pattern Blood Pressure 146/90 H 147/98 H 141/101 H Blood Pressure Mean 108 114 Blood Pressure Position Pulse Oximetry 95 97 Oxygen Delivery Method Room Air Room Air Sepsis Recent Fever Within 48 Hours Sepsis New/Unexplained Change in Mental Status Sepsis Action Taken by Nursing 07/24/23 00:08 07/24/23 00:30 07/24/23 01:00 Temperature Temperature Source Pulse Rate 125 H 92 H 87 Pulse Rate from SpO2 Sensor 100 H 90 75 Respiratory Rate 22 19 19 Respiratory Effort / Characteristics Respiratory Depth Respiratory Pattern Blood Pressure 141/101 H 146/120 H 142/90 H Blood Pressure Mean 114 128 107 Blood Pressure Position Pulse Oximetry 96 96 95 Oxygen Delivery Method Room Air Room Air Room Air Sepsis Recent Fever Within 48 Hours Sepsis New/Unexplained Change in Mental Status Sepsis Action Taken by Nursing 07/24/23 01:27 Temperature Temperature Source Pulse Rate 90 Pulse Rate from SpO2 Sensor Respiratory Rate Respiratory Effort / Characteristics Respiratory Depth Respiratory Pattern Blood Pressure 140/102 H Blood Pressure Mean Blood Pressure Position Pulse Oximetry Oxygen Delivery Method Sepsis Recent Fever Within 48 Hours Sepsis New/Unexplained Change in Mental Status Sepsis Action Taken by Nursing Laboratory Data 07/23/23 22:50 07/23/23 22:50 Lab Results 07/23/23 Range/Units 22:50 WBC 8.06 (4.8-10.8) K/ul RBC 5.02 (4.70-6.10) M/uL Hgb 15.8 (14.0-18.0) g/dl Hct 46.4 (42.0-52.0) % MCV 92.4 (80.0-100.0) fL MCH 31.5 (25.0-34.0) pg MCHC 34.1 (32.0-36.0) g/dL RDW Std Deviation 41.6 (36.4-46.3) fL RDW Coeff of Azam 12.3 (11.5-14.5) % Plt Count 210 (130-400) K/uL MPV 10.0 (9.4-12.4) fL Immature Gran % (Auto) 0.6 % Neut % (Auto) 73.7 % Lymph % (Auto) 13.6 % [place] % (Auto) 10.5 % Eos % (Auto) 1.2 % Baso % (Auto) 0.4 % Neut # (Auto) 5.93 (1.40-6.50) K/uL Lymph # (Auto) 1.10 L (1.20-3.40) K/uL [place] # (Auto) 0.85 H (0.11-0.59) K/uL Eos # (Auto) 0.10 (0.00-0.50) K/uL Baso # (Auto) 0.03 (0.00-0.20) K/uL Immature Gran # (Auto) 0.05 (0.01-0.20) K/uL PT 11.7 (9.0-12.0) Seconds INR 1.1 (0.9-1.1) Sodium 138 (136-145) mmol/L Potassium 4.5 (3.5-5.1) mmol/L Chloride 103 (98-107) mmol/L Carbon Dioxide 26 (21-32) mmol/L Anion Gap 9 (3-11) BUN 16 (6-23) mg/dl Creatinine 1.02 (0.6-1.4) mg/dl Est Cr Clr Drug Dosing 100.5 ml/min Est GFR ( Amer) 88.4 ml/min Est GFR (Non-Af Amer) 76.2 ml/min BUN/Creatinine Ratio 15.7 (10-20) Glucose 118 H (70-99(Fasting)) mg/dl Calcium 9.7 (8.6-10.3) mg/dl Magnesium 2.0 (1.7-2.4) mg/dl Total Bilirubin 0.5 (0.2-1.0) mg/dl AST 43 H (13-39) U/L ALT 47 (7-52) U/L Alkaline Phosphatase 64 (34-104) U/L Total Protein 7.3 (6.0-8.3) gm/dl Albumin 4.3 (3.4-5.0) gm/dl Globulin 3.0 (2.5-4.0) gm/dl Albumin/Globulin Ratio 1.4 (0.9-2) TSH 3.339 (0.300-4.500) uIu/ml Administered Medications Discontinued Medications Diltiazem HCl (Diltiazem Hcl 5 Mg/Ml 5 Ml Vial) 10 mg IV NOW STA Stop: 07/23/23 23:30 Last Admin: 07/24/23 00:01 Dose: Not Given Documented By: MARCELLA Sodium Chloride (Nss) 1,000 mls @ 999 mls/hr IV .Q1H1M ONE Stop: 07/23/23 23:59 Last Infusion: 07/24/23 00:02 Dose: Infused Documented By: Admin: 07/23/23 23:03 Dose: 999 mls/hr Documented By: TANIA Diltiazem HCl 125 mg/ Dextrose 125 mls @ 5 mls/hr IV .Q24H [facility]; Protocol Stop: 08/22/23 23:29 Last Admin: 07/24/23 00:01 Dose: Not Given Documented By: MARCELLA Magnesium Sulfate/Dextrose (Magnesium Sulfate / D5w) 1 gm in 100 mls @ 50 mls/hr IV ONE ONE Stop: 07/24/23 01:41 Last Admin: 07/24/23 00:10 Dose: 50 mls/hr Documented By: MARCELLA Metoprolol Tartrate (Metoprolol Tartrate 1 Mg/Ml Vial) 5 mg IV NOW STA Stop: 07/23/23 23:43 Last Admin: 07/24/23 00:07 Dose: 5 mg Documented By: MARCELLA Miscellaneous (Stat Iv Infusion Titration Per Protocol) 1 each N/A NOW STA Stop: 07/23/23 23:30 Last Admin: 07/24/23 00:01 Dose: Not Given Documented By: MARCELLA Discharge Plan Visit Data Chief Complaint: Flu Like Symptoms Stated Complaint: COV+, TROUBLE SWALLOWING ED Provider: Daniel Purcell Discharge Problem: Atrial fibrillation with rapid ventricular response, Viral URI Forms Stand Alone Forms: My [facility] Prescriptions Prescriptions: No Action Lisinopril 5 MG tablet 5 mg PO QAM Qty: 30 5RF Metoprolol Succinate (Metoprolol Succinate ER) 25 MG [id number] 25 mg PO QAM Qty: 30 5RF Warfarin Sod (Coumadin) 5 MG tablet 7.5 mg PO DAILY 30 Days Qty: 0 0RF Rx Instructions: New dose starting 12/29/17. Further dosing as instructed by Anticoagulation Clinic. Referrals Referrals: Ernesto Cedillo DO [Primary Care Provider] -
[2023-07-23] MEDS ORDERED: MAGNESIUM SULFATE / D5W 1 GM/100 ML BAG IV ONE (23:42)
[2023-07-23] MEDS ORDERED: METOPROLOL TARTRATE 1 MG/ML VIAL IV STA (23:42)
[2023-07-23 23:44] LABS: INR 1.1 (0.9-1.1); Prothrombin Time 11.7 Seconds (9.0-12.0)
[2023-07-24] MEDS ORDERED: SODIUM CHLORIDE 0.65% NA SOLN 45 ML (OCEAN) ONE (00:30)
[2023-07-24] MEDS ORDERED: SODIUM CHLORIDE 0.65% NA SOLN 45 ML (OCEAN) PRN (00:30)
[2023-07-24 00:46] LABS: Thyroid Stimulating Hormone 3.339 uIu/ml (0.300-4.500)
[2023-07-24 02:13] LABS: Influenza A virus by PCR Negative (Neg); Influenza B virus by PCR Negative (Neg); RSV by PCR Negative (Neg)
[2023-07-24 02:21] LABS: SARS CoV2 RNA(COVID-19) Ceph POSITIVE (Negative)
[2023-07-24] MEDS ORDERED: METOPROLOL SUCC 50MG EXT REL TAB PO STA (02:32)
[2023-07-24] MEDS ORDERED: SODIUM CHLORIDE 0.9% 1,000 ML IV ONE (02:36)
[2023-07-24] MEDS ORDERED: PROMETHAZINE HCL 12.5 MG in SODIUM CHLORIDE 0.9% 50 ML IV PRN (02:36)
[2023-07-24] MEDS ORDERED: IPRATROPIUM BROMIDE NASAL SPRAY 0.06% 15ML NAE PRN (02:37)
[2023-07-24] MEDS ORDERED: AMPICILLIN/SULBACTAM SOD 3,000 MG in SODIUM CHLOR 0.9% MINI-B 100 ML IV STA (02:37)
--- NOTE | 2023-07-24 02:39 | History & Physical Report ---
Date of Service July 24, 2023 Assessment & Plan (1) Atrial fibrillation with rapid ventricular response: Plan: Secondary to discomfort from sinus congestion from recent COVID-19 illness status post Paxlovid Rx Superimposed bacterial infection given persistent colored drainage No sepsis for now chronic systolic heart failure (EF 45%, TTE 2022), patient euvolemic to dry hypertension, slight elevated hyperlipidemia, on statin Rx prediabetes, hemoglobin A1c of 5.6 last May 2022 PCU IV Lopressor 1 dose now Titrate home beta-steven Cardiology consult if without improvement Unasyn followed by Augmentin for complicated sinusitis Topical Rx for nasal congestion (Saline or Atrovent as needed) DVT prophylaxis. Eliquis Full code Text document was generated using [employer] voice recognition software. It may contain grammatical or spelling errors. Kindly contact undersigned for clarification of any documentation item in question. History of Present Illness Chief Complaint: COVID, congestion, postnasal/throat drainage Primary Care Provider: Ernesto Cedillo DO History obtained from patient and records. Medical history significant for chronic systolic heart failure (EF 45%, TTE 2022), A-fib on Eliquis, hypertension, hyperlipidemia, prediabetes, GERD. Last confinement 2017 for chest pain. Exercise stress echo negative for inducible ischemia. 2 weeks ago, patient noticed sinus congestion later followed by cough productive of junky yellow sputum. Generalized achiness without fever, shortness of breath, or chest pain. Positive COVID-19 test at home. Patient completed outpatient Paxlovid course. Improved achiness but persistent sinus congestion/drainage at the back of his throat causing some trouble with swallowing. No headache, no chest pain, no SOB. Denies fluid retention. Patient compliant with home medications. Denies OTC decongestant use. Patient consulted ER for troublesome symptoms. Patient noted to be rapid A-fib upon arrival at the ER. Heart rate 1 20-1 60s. 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 Allergies Allergy/AdvReac Type Severity Reaction Status Date / Time No Known Allergies Allergy Unknown Verified 12/27/17 18:40 Home Medications Medication Instructions Recorded Confirmed Type Metoprolol Succinate (Metoprolol 25 mg PO QAM #30 tabs 05/11/18 12/05/23 Rx Succinate ER) apixaban 5 mg tablet (Eliquis) 5 mg PO BID 07/24/23 07/24/23 History famotidine 20 mg tablet (Pepcid) 20 mg PO ONCE PRN Acid Reflux 07/24/23 07/24/23 History rosuvastatin 20 mg tablet (Crestor) 20 mg PO ONCE 07/24/23 07/24/23 History Past Med/Surg History Social History Smoking Status: Never smoker Hx Alcohol Use: Yes Alcohol type: wine Hx Substance Use: No Preferred Language: Lao Communication Ability: Effective Fence Laborer Required: No Beliefs That Will Affect Care: None Current Living Situation: Spouse Other Information That Helps Us Care for You: No Feels Safe at Home: Yes Safety Concerns: Feels Safe At This Time Assistive Devices: Contacts Review of Systems Review of Systems: As per HPI, all other systems reviewed and negative Physical Exam Physical Exam: GENERAL: Comfortable, obese, pleasant, no respiratory distress SKIN: Normal color, warm HEENT: Alopecia, pink palpebral conjunctivae, no ptosis, dry buccal mucosa, minimal congestion posterior pharyngeal wall NECK : Supple, short neck, no tenderness CHEST : CTA, no tenderness HEART : Irregular, no obvious murmurs ABDOMEN: Some distention, nontender EXTREMITIES : No LE swelling/tenderness, no other conspicuous deformities noted NEUROLOGIC : Coherent, no facial asymmetry, no other gross focality Results & Data Results & Data Vital Signs (Past 12 Hours) Vital Signs Temp Pulse Resp BP Pulse Ox O2 Del Method 07/24/23 01:30 95 H 18 141/100 H 96 Room Air 07/24/23 01:27 90 140/102 H 07/24/23 01:00 87 19 142/90 H 95 Room Air 07/24/23 00:30 92 H 19 146/120 H 96 Room Air 07/24/23 00:08 125 H 22 141/101 H 96 Room Air 07/24/23 00:07 138 H 141/101 H 07/24/23 00:00 114 H 22 147/98 H 97 Room Air 07/23/23 23:31 136 H 20 146/90 H 95 Room Air 07/23/23 23:01 155 H 22 124/104 H 95 Room Air 07/23/23 23:00 137 H 22 95 07/23/23 22:50 169 H 21 97 07/23/23 22:49 109/88 07/23/23 22:49 134 H 07/23/23 22:00 36.8 C 120 H 18 138/101 H 97 Room Air Laboratory Results Laboratory Results WBC 8.06 K/ul (4.8-10.8) 07/23/23 22:50 RBC 5.02 M/uL (4.70-6.10) 07/23/23 22:50 Hgb 15.8 g/dl (14.0-18.0) 07/23/23 22:50 Hct 46.4 % (42.0-52.0) 07/23/23 22:50 MCV 92.4 fL (80.0-100.0) 07/23/23 22:50 MCH 31.5 pg (25.0-34.0) 07/23/23 22:50 MCHC 34.1 g/dL (32.0-36.0) 07/23/23 22:50 RDW Std Deviation 41.6 fL (36.4-46.3) 07/23/23 22:50 RDW Coeff of Azam 12.3 % (11.5-14.5) 07/23/23 22:50 Plt Count 210 K/uL (130-400) 07/23/23 22:50 MPV 10.0 fL (9.4-12.4) 07/23/23 22:50 Immature Gran % (Auto) 0.6 % 07/23/23 22:50 Neut % (Auto) 73.7 % 07/23/23 22:50 Lymph % (Auto) 13.6 % 07/23/23 22:50 [place] % (Auto) 10.5 % 07/23/23 22:50 Eos % (Auto) 1.2 % 07/23/23 22:50 Baso % (Auto) 0.4 % 07/23/23 22:50 Neut # (Auto) 5.93 K/uL (1.40-6.50) 07/23/23 22:50 Lymph # (Auto) 1.10 K/uL (1.20-3.40) L 07/23/23 22:50 [place] # (Auto) 0.85 K/uL (0.11-0.59) H 07/23/23 22:50 Eos # (Auto) 0.10 K/uL (0.00-0.50) 07/23/23 22:50 Baso # (Auto) 0.03 K/uL (0.00-0.20) 07/23/23 22:50 Immature Gran # (Auto) 0.05 K/uL (0.01-0.20) 07/23/23 22:50 PT 11.7 Seconds (9.0-12.0) 07/23/23 22:50 INR 1.1 (0.9-1.1) 07/23/23 22:50 Sodium 138 mmol/L (136-145) 07/23/23 22:50 Potassium 4.5 mmol/L (3.5-5.1) 07/23/23 22:50 Chloride 103 mmol/L (98-107) 07/23/23 22:50 Carbon Dioxide 26 mmol/L (21-32) 07/23/23 22:50 Anion Gap 9 (3-11) 07/23/23 22:50 BUN 16 mg/dl (6-23) 07/23/23 22:50 Creatinine 1.02 mg/dl (0.6-1.4) 07/23/23 22:50 Est Cr Clr Drug Dosing 100.5 ml/min 07/23/23 22:50 Est GFR ( Amer) 88.4 ml/min 07/23/23 22:50 Est GFR (Non-Af Amer) 76.2 ml/min 07/23/23 22:50 BUN/Creatinine Ratio 15.7 (10-20) 07/23/23 22:50 Glucose 118 mg/dl (70-99(Fasting)) H 07/23/23 22:50 Calcium 9.7 mg/dl (8.6-10.3) 07/23/23 22:50 Magnesium 2.0 mg/dl (1.7-2.4) 07/23/23 22:50 Total Bilirubin 0.5 mg/dl (0.2-1.0) 07/23/23 22:50 AST 43 U/L (13-39) H 07/23/23 22:50 ALT 47 U/L (7-52) 07/23/23 22:50 Alkaline Phosphatase 64 U/L (34-104) 07/23/23 22:50 Total Protein 7.3 gm/dl (6.0-8.3) 07/23/23 22:50 Albumin 4.3 gm/dl (3.4-5.0) 07/23/23 22:50 Globulin 3.0 gm/dl (2.5-4.0) 07/23/23 22:50 Albumin/Globulin Ratio 1.4 (0.9-2) 07/23/23 22:50 TSH 3.339 uIu/ml (0.300-4.500) 07/23/23 22:50 SARS-CoV-2 (PCR) POSITIVE (Negative) A* 07/24/23 Unknown Influenza Type A (PCR) Negative (Neg) 07/24/23 Unknown Influenza Type B (PCR) Negative (Neg) 07/24/23 Unknown RSV (RT-PCR) Negative (Neg) 07/24/23 Unknown Diagnostic Findings Chest x-ray as per my interpretation cardiomegaly, elevated right hemidiaphragm EKG as per my interpretation : Rate 150, A-fib, LAD, LAFB, septal infarct, no ischemia Code Status & VTE Plan VTE Prophylaxis Plan VTE Prophylaxis will be ordered: Yes
[2023-07-24] MEDS ORDERED: ACETAMINOPHEN 325 MG TAB PO PRN (02:47)
[2023-07-24] MEDS ORDERED: FAMOTIDINE 20 MG TAB PO PRN (02:47)
--- OUTSIDE RECORDS SUMMARY | 2023-07-24 04:29 | External Medical Summary | Summary of Care ---
Author Name Unknown Organization [facility] Address [address] [place] [address] Phone [phone] Care Team Providers Care Customs And Immigration Officer Name Role Phone Ernesto Cedillo DO Primary Care Provider Reason for Visit * Reason Onset Date Comments Health Maintenance 06/12/2023 Encounter Details Date Type Department Care Team (Late st Contact Info) Description 06/12/2023 Telephone Family Practice [facility] [address] [facility] [address] Ern[facility]edillo [facility] [address] [facility] [address] Health Maintenance Allergies Active Allergy Reactions Criticality Noted Date Comments Sulfa Antibiotics Unknown 04/08/2008 As child documented as of this encounter (statuses as of 06/12/2023) Medications Medication Sig Dispensed Refills Start Date End Date Status Lisinopril 5 MG Oral Tablet (Prinivil) Take 1 Tablet by mouth in the morning. 0 Active Rosuvastatin Calcium 20 MG Oral Tablet (Crestor) TAKE ONE TABLET BY MOUTH EVERY DAY IN THE MORNING 100 Tablet 3 06/12/2022 Active Additional Information Patient taking differently:20 mg OralDaily(Non-Specified), Reported on 09/18/2022 Apixaban 5 MG Oral Tablet (Eliquis)Indicatio ns:Atrial fibrillation, unspecified type (HCC) TAKE 1 TABLET BY MOUTH EVERY MORNING AND 1 TABLET BEFORE BEDTIME 180 Tablet 3 06/12/2022 06/26/2023 Active Metoprolol Succinate ER 25 MG Oral Tablet Extended Release 24 Hour (toPROL XL) TAKE ONE TABLET BY MOUTH EVERY MORNING 90 Tablet 3 06/12/2022 09/15/2023 Active Famotidine 20 MG Oral Tablet (Pepcid) Take 1 Tablet by mouth in the morning and 1 Tablet before bedtime. 180 Tablet 3 05/18/2023 08/20/2023 Active documented as of this encounter (statuses as of 06/12/2023) Active Problems Problem Noted Date Diagnosed Date Essential (primary) hypertension 01/03/2023 BMI 40.0-44.9, adult 01/03/2023 Need for jgnchjsbhe-qqvihzq-dzprinclc (Tdap) vac cine 01/03/2023 Hyperlipidemia 11/28/2021 Gastro-esophageal reflux disease without esophag itis 09/04/2019 Prediabetes 03/31/2019 Overview: Per Prediabetes protocol [employer]aker continuous churn current use of anticoagulant therapy 1 Overview: ICD-10 update of inactive term Other primary cardiomyopathies 12/05/2002 Anticoagulation management encounter 11/19/2002 Atrial fibrillation 11/13/2002 documented as of this encounter (statuses as of 06/12/2023) Resolved Problems Problem Noted Date Diagnosed Date Resolved Date Other cardiomyopathies 11/28/202105/29 Chronic atrial fibrillation 09/04/2019 09/14/2020 Coagulation defect 03/03/2019 0 Obesity, morbid (more than 1 00 lbs over ideal weight or BMI > 40) 11/16/2009 02/01/2023 Overview: Per Obesity Taxonomy ICD-10 update of inactive term Obesity, BMI not known 04/21/200911/16 Overview: Per Obesity Taxonomy documented as of this encounter (statuses as of 06/12/2023) Immunizations Name Administration Dates Next Due COVID-19 mRNA, LNP-s, No Pre serve, 2-Dose Series ([employer]) 05/12/2021,10/29/2020,10/03/2020 Covid-19, Mrna, Lnp-s, Pf, B ivalent, 30 Mcg, IM, 12 yrs and above (Pfizer) 06/13/2022 Pneumococcal Conjugate Vacc, 13 Valent (Prevnar) 01/01/2018 Pneumococcal Polysaccharide PPV23 (Pneumovax) 03/03/2019 SEASONAL INFLUENZA, PF, 6 M & Above, IM , (FLULAVAL or FLUZONE) 05/02/2021 Seasonal Influenza, Quadriva lent Hd (Fluzone Hd) 05/16/2022 Seasonal Influenza, Quadriva lent, No Preserve, IM 05/04/2020,04/28/2019,04/16/2018 Seasonal Influenza, Quadriva lent, No Preserve, Mdck 04/24/2019 Seasonal Influenza, Split, I IV3, With Preserve, Inj 04/21/2010,06/11/2009,06/02/2008 TDAP (age 10 and older)(Boostrix) 2022(Deferred: Done Elsewhere),01/01/2018 Zoster Vaccine Recombinant (Shingrix) 07/01/2018 ,04/04/2018 documented as of this encounter Social History Tobacco Use Types Packs/Day Years Used Date Smoking Tobacco: Never Smokeless Tobacco: Never Alcohol Use Standard Drinks/Week Comments Yes 0 (1 standard drink = 0.6 oz pur e alcohol) 2-3 daily Hunger Vital Sign Answer Date Recorded Within the past 12 months, y ou worried that your food would run out before you got the money to buy more. Never true 05/24/20 23 Within the past 12 months, t he food you bought just didn't last and you didn't have money to get more. Never true 05/24/2023 Sex and Gender Information Value Date Recorded Sex Assigned at Male 09/04/2019 8:08 AM EST Gender Identity Male 09/04/2019 8:08 AM EST Sexual Orientation Straight 09/04/2019 8: 08 AM EST Job Start Date Occupation Industry Not on file Not on file Not on file documented as of this encounter Miscellaneous Notes * Telephone Encounter - Brenda Barraza LPN - 06/12/2023 12:45 PM EDT Care Gaps Comprehensive Care Outreach Last Office/Telemedicine Visit: 05/24/2023 (in office), Visit date not found (telemedicine) Next Office Visit: 08/27/2023 Hemoglobin AIC Results: Lab Results Component Value Date/Time HEMOGLOBIN A1C - [facility] 5.6 06/06/2022 10:50 AM HEMOGLOBIN A1C - [facility] 5.6 11/23/2021 08:57 AM HEMOGLOBIN A1C - [facility] 5.7 (H) 04/27/2021 09:13 AM HEMOGLOBIN A1C - [facility] 5.8 (H) 09/08/2020 09:44 AM HEMOGLOBIN A1C - [facility] 5.5 03/04/2020 08:45 AM HEMOGLOBIN A1C - [facility] 5.6 09/04/2019 08:39 AM Reviewed Health Maintenance below: Health Maintenance Topic Date Due Depression Screening 11/28/2022 Influenza Vaccine (FLU shot) (1) 04/20/2023 HbA1c 06/06/2023 Lab already ordered Awv my g Care Gap Outreach Action Taken: Myportal message sent documented in this encounter Plan of Treatment Upcoming Encounters Date Type Department Care Team (Late st Contact Info) Description 08/27/2023 11:40 AM EST Office Visit Family Practice [facility] [address] [place] [address] Ernesto Cedillo, [address] [place] [address] 10/03/2023 8:00 AM EST Office Visit Cardiology, [facility] [address] [place] [address] Meño Goode, DO [address] [place] [address] Scheduled Procedures Name Priority Associated Diagnoses Date/Ti me COLONOSCOPY FLEXIBLE PROXIMAL DIAGNOSTIC Recall History of colon polyps Health Maintenance Due Date Last Done Comments Depression Screening 11/28/2022 11/28/2021 Influenza Vaccine (FLU shot) (#1) 2023 05/16/2022, 05/02/2021, 05/04/2020, Additional history exists HbA1c 06/06/2023 06/06/2022, 0 01/2022, 04/27/2021, Additional history exists Pneumococcal Vaccine: 65+ Years (3 - PPSV23 or PCV20) 03/03/2024 03/03/2019, 01/01/2018 GFR 03/06/2024 03/06/2023, 05/20, 11/23/2021, Additional history exists Albumin/Creatinine Ratio 06/06/2025 022, 04/27/2021, 09/08/2020, Additional history exists COLONOSCOPY-EVERY 3 YRS AGES 18-100 08/24/2025 08/24/2022, 08/24/2022, 01/13/2022, Additional history exists Lipid Panel 05/02/2027 05/02/2022, 0 01/2022, 04/27/2021, Additional history exists DTaP,Tdap,and Td Vaccines (2 - Td or Tdap) 01/02/2028 01/01/2018, 06/30/2003 Zoster Vaccines Completed 07/01/2018, 04/04/2018 Cologuard Discontinued 11/30/2021, 0 01/2022, 11/23/2021, Additional history exists Colonoscopy Discontinued 08/24/2022, 12/2022, 01/13/2022, Additional history exists Colorectal Cancer Screening Discontinued COVID-19 Vaccine Completed 05/26/2023, , 05/12/2021, Additional history exists Fecal Occult Blood Test Discontinued GARDASIL-HPV IMMUNIZATION SERIES Aged Out No longer eligible based on patient's age to complete this topic Hepatitis B Aged Out No longer eligi ble based on patient's age to complete this topic MENINGOCOCCAL (MENACTRA/MENVEO) Aged Out No longer eligible based on patient's age to complete this topic Sigmoidoscopy Discontinued documented as of this encounter Medical Devices Not on filedocumented as of this encounter Care Teams Customs And Immigration Officer Relationship Specialty Start Date End Date Ernesto Cedillo DO [address] [place] [address] PCP - General Family Medicine 10/01/18 documented as of this encounter
--- OUTSIDE RECORDS SUMMARY | 2023-07-24 04:29 | External Medical Summary | Summary of Care ---
Author Name Unknown Organization [facility] Address [address] [place] [address] Phone [phone] Care Team Providers Care Welding Machine Operator Thermit Name Role Phone Ernesto Cedillo DO Primary Care Provider Reason for Visit * Reason Comments Eye Problem Pt c/o redness, pain and swelling in R eye lid Encounter Details Date Type Department Care Team (Late st Contact Info) Description 07/03/2023 8:40 AM EST Office Visit Family Practice [facility] [address] [facility] [place] [address] Frederick Tovar MD [address] [place] [address] Squamous blepharitis of right upper eyelid* Allergies Active Allergy Reactions Criticality Noted Date Comments Sulfa Antibiotics Unknown 04/08/2008 As child documented as of this encounter (statuses as of 07/03/2023) Medications Medication Sig Dispensed Refills Start Date End Date Status Lisinopril 5 MG Oral Tablet (Prinivil) Take 1 Tablet by mouth in the morning. 0 Active Metoprolol Succinate ER 25 MG Oral Tablet Extended Release 24 Hour (toPROL XL) TAKE ONE TABLET BY MOUTH EVERY MORNING 90 Tablet 3 06/12/2022 09/15/2023 Active Famotidine 20 MG Oral Tablet (Pepcid) Take 1 Tablet by mouth in the morning and 1 Tablet before bedtime. 180 Tablet 3 05/18/2023 08/20/2023 Active Rosuvastatin Calcium 20 MG Oral Tablet (Crestor) TAKE ONE TABLET BY MOUTH EVERY DAY IN THE MORNING 100 Tablet 0 06/13/2023 Active Apixaban 5 MG Oral Tablet (Eliquis)Indication s:Atrial fibrillation, unspecified type (HCC) TAKE 1 TABLET BY MOUTH EVERY MORNING AND 1 TABLET BEFORE BEDTIME 180 Tablet 2 06/18/2023 Active Polymyxin B-Trimethoprim 65629-0.1 UNIT/ML-% Ophthalmic Solution (Polytrim)Indicatio ns:Squamous blepharitis of right upper eyelid Instill 1 Drop into the left eye every 3 hours while awake for 7 days. (6 times a day) for 7 days. 10 mL 0 07/03/2023 07/10/2023 Active Erythromycin 5 MG/GM Ophthalmic OintmentIndications :Squamous blepharitis of right upper eyelid Apply 1/2 inch to right upper eyelid twice daily until redness resolves 3.5 g 0 07/03/2023 Active documented as of this encounter (statuses as of 07/03/2023) Active Problems Problem Noted Date Diagnosed Date HTN, goal below 130/80 01/03/2023 Dyslipidemia 11/28/2021 Gastro-esophageal reflux disease without esophag itis 09/04/2019 Prediabetes 03/31/2019 Overview: Per Prediabetes protocol Paroxysmal atrial fibrillation 11/13/2002 documented as of this encounter (statuses as of 07/03/2023) Resolved Problems Problem Noted Date Diagnosed Date Resolved Date BMI 40.0-44.9, adult 01/03/2023 023 Need for diphtheria-tetanus- pertussis (Tdap) vaccine 01/03/2023 07/03/2023 Other cardiomyopathies 11/28/202105/29 Chronic atrial fibrillation 09/04/2019 09/14/2020 Coagulation defect 03/03/2019 0 Obesity, morbid (more than 1 00 lbs over ideal weight or BMI > 40) 11/16/2009 02/01/2023 Overview: Per Obesity Taxonomy ICD-10 update of inactive term Obesity, BMI not known 04/21/200911/16 Overview: Per Obesity Taxonomy shelter current use of ant icoagulant therapy 08/18/2003 07/03/2023 Overview: ICD-10 update of inactive term Other primary cardiomyopathies 12/05/2002 07/03/2023 Anticoagulation management encounter 11/19/2002 07/03/2023 documented as of this encounter (statuses as of 07/03/2023) Immunizations Name Administration Dates Next Due COVID-19 mRNA, LNP-s, No Pre serve, 2-Dose Series ([employer]) 05/12/2021,10/29/2020,10/03/2020 Covid-19, Mrna, Lnp-s, Pf, B ivalent, 30 Mcg, IM, 12 yrs and above ([employer]) 06/13/2022 Pneumococcal Conjugate Vacc, 13 Valent (Prevnar) [...] 0.6 oz pur e alcohol) 2-3 daily PHQ-2 Answer Date Recorded PHQ Adult Total Score 0 11/28/2021 Hunger Vital Sign Answer Date Recorded Within [...] on file documented as of this encounter Last Filed Vital Signs Vital Sign Reading Time Taken Comments Blood Pressure 106/72 07/03/2023 8:23 AM EST Pulse 76 07/03/2023 8:23 AM EST Temperature 36 C (96.8 F) 07/03/2023 8:23 AM EST Respiratory Rate 18 07/03/2023 8:23 AM EST Oxygen Saturation - - Inhaled Oxygen Concentration - - Weight 155.1 kg (342 lb) 07/03/2023 8:23 AM EST Height 190.5 cm (6' 3") 07/03/2023 8:23 AM EST Body Mass Index 42.75 07/03/2023 8:23 AM EST documented in this encounter Progress Notes * Frederick Tovar MD - 07/03/2023 9:21 AM EST SUBJECTIVE: Ravinder Grissom is a 67 year old male. Chief Complaint Patient presents with Eye Problem Pt c/o redness, pain and swelling in R eye lid HPI: Swelling of right upper eyelid for 48 hours. Started after blowing leaves. Usually wears contacts. No orbital/globe pain. Patient Active Problem List Diagnosis Code Paroxysmal atrial fibrillation (HCC) I48.0 Prediabetes R73.03 Gastro-esophageal reflux disease without esophagitis K21.9 Dyslipidemia E78.5 HTN, goal below 130/80 I10 Current Outpatient Medications Medication Sig Dispense Refill Lisinopril 5 MG Oral Tablet (Prinivil) Take 1 Tablet by mouth in the morning. Metoprolol Succinate ER 25 MG Oral Tablet Extended Release 24 Hour (toPROL XL) TAKE ONE TABLET BY MOUTH EVERY MORNING 90 Tablet 3 Famotidine 20 MG Oral Tablet (Pepcid) Take 1 Tablet by mouth in the morning and 1 Tablet before bedtime. 180 Tablet 3 Rosuvastatin Calcium 20 MG Oral Tablet (Crestor) TAKE ONE TABLET BY MOUTH EVERY DAY IN THE MORNING 100 Tablet 0 Apixaban 5 MG Oral Tablet (Eliquis) TAKE 1 TABLET BY MOUTH EVERY MORNING AND 1 TABLET BEFORE BEDTIME 180 Tablet 2 Polymyxin B-Trimethoprim 16386-5.1 UNIT/ML-% Ophthalmic Solution (Polytrim) Instill 1 Drop into theleft eye every 3 hours while awake for 7 days. (6 times a day) for 7 days. 10 mL 0 Erythromycin 5 MG/GM Ophthalmic Ointment Apply 1/2 inch to right upper eyelid twice daily until redness resolves 3.5 g 0 No current facility-administered medications for this visit. Allergy: Review of patient's allergies indicates: Allergen Reactions Sulfa [Sulfa Antibiotics] Unknown As child OBJECTIVE: BP 106/72 | Pulse 76 | Temp 36 C (96.8 F) (Tympanic) | Resp 18 | Ht 1.905 m (6' 3") | Wt (!) 155.1 kg (342 lb) | BMI 42.75 kg/m | BSA 2.86 m Gen: nad Eyes: right upper eyelid diffusely edematous without drainage; PERRLA; EOMI; no FB with lid eversion ASSESSMENT AND PLAN: (H01.021) Squamous blepharitis of right upper eyelid (primary encounter diagnosis) Plan: Polymyxin B-Trimethoprim 75836-3.1 UNIT/ML-% Ophthalmic Solution (Polytrim), Erythromycin 5 MG/GM Ophthalmic Ointment Follow up as needed. No other complaints were offered at this time. Frederick Tovar MD documented in this encounter Nursing Notes * Martine Arellano LPN - 07/03/2023 8:23 AM EST The patient has been properly identified by confirmation of name and date of . Chief Complaint Patient presents with Eye Problem Pt c/o redness, pain and swelling in R eye lid documented in this encounter Plan of Treatment Upcoming Encounters Date Type Department Care Team (Late st Contact Info) Description 08/27/2023 11:40 AM EST Office Visit Family Practice [facility] [address] [place] [address] Ernesto Cedillo, DO [address] [place] [phone] 10/03/2023 8:00 AM EST Office Visit Cardiology, [facility] [address] [place] [address] Meño Goode, DO [address] [place] [address] Scheduled Procedures Name Priority Associated Diagnoses Date/Ti me COLONOSCOPY FLEXIBLE PROXIMAL DIAGNOSTIC Recall History of colon polyps Health Maintenance Due Date Last Done Comments Depression Screening 11/28/2022 11/28/2021 Influenza Vaccine (FLU shot) (#1) 2023 05/16/2022, 05/02/2021, 05/04/2020, Additional history exists HbA1c 06/06/2023 06/06/2022, 04/0 01/2022, 04/27/2021, Additional history exists Pneumococcal Vaccine: 65+ Years (3 - PPSV23 or PCV20) 03/03/2024 03/03/2019, 01/01/2018 GFR 03/06/2024 03/06/2023, 05/20, 11/23/2021, Additional history exists Albumin/Creatinine Ratio 06/06/20252 022, 04/27/2021, 09/08/2020, Additional history exists COLONOSCOPY-EVERY 3 YRS AGES 18-100 08/24/2025 08/24/2022, 08/24/2022, 01/13/2022, Additional history exists Lipid Panel 05/02/2027 05/02/2022, 04/0 01/2022, 04/27/2021, Additional history exists DTaP,Tdap,and Td [...] Not on filedocumented as of this encounter Visit Diagnoses Diagnosis Squamous blepharitis of right upper eyelid- Primary Squamous blepharitis documented in this encounter Care Teams Welding Machine Operator Thermit Relationship Specialty Start Date End Date Ernesto Cedillo DO [address] [place] [address] PCP - General Family Medicine 10/01/18 documented as of this encounter
--- OUTSIDE RECORDS SUMMARY | 2023-07-24 04:29 | External Medical Summary | Summary of Care ---
Author Name Unknown Organization [facility] Address [address] [place] [address] Phone [phone] Care Team Providers Care Acupressurist Name Role Phone Jessica Cedillo DO Primary Care Provider Reason for Visit * Reason Comments Medication Refill Encounter Details Date Type Department Care Team (Late st Contact Info) Description 06/18/2023 [facility]ill [facility] [address] [facility] [address] Jessica Cedillo DO [address] [place] [address] Atrial fibrillation, unspecified type (HCC) Allergies Active Allergy Reactions Criticality Noted Date Comments Sulfa Antibiotics Unknown 04/08/2008 As child documented as of this encounter (statuses as of 06/18/2023) Medications Medication Sig Dispensed Refills Start Date [...] 06/13/2023 Active Apixaban 5 MG Oral Tablet (Eliquis)Indicatio ns:Atrial fibrillation, unspecified type (HCC) TAKE 1 TABLET BY MOUTH EVERY MORNING AND 1 TABLET BEFORE BEDTIME 180 Tablet 2 06/18/2023 Active Apixaban 5 MG Oral Tablet (Eliquis)Indicatio ns:Atrial fibrillation, unspecified type (HCC) TAKE 1 TABLET BY MOUTH EVERY MORNING AND 1 TABLET BEFORE BEDTIME 180 Tablet 3 06/12/2022 06/18/2023 Discontinued (Refill) documented as of this encounter (statuses as of 06/18/2023) Active Problems Problem Noted Date Diagnosed Date Essential (primary) hypertension 01/03/2023 BMI 40.0-44.9, adult 01/03/2023 Need for wdfbvuzafv-hvvzerz-qfpccwfrd (Tdap) vac cine 01/03/2023 Hyperlipidemia 11/28/2021 Gastro-esophageal reflux disease without esophag itis 09/04/2019 Prediabetes 03/31/2019 Overview: Per Prediabetes protocol [facility] current use of anticoagulant therapy 1 Overview: ICD-10 update of inactive term Other primary cardiomyopathies 12/05/2002 Anticoagulation management encounter 11/19/2002 Atrial fibrillation 11/13/2002 documented as of this encounter (statuses as of 06/18/2023) Resolved Problems Problem Noted Date Diagnosed Date Resolved Date Other cardiomyopathies 11/28/202105/29 Chronic atrial fibrillation 09/04/2019 09/14/2020 Coagulation defect 03/03/2019 0 Obesity, morbid (more than 1 00 lbs over ideal weight or BMI > 40) 11/16/2009 02/01/2023 Overview: Per Obesity Taxonomy ICD-10 update of inactive term Obesity, BMI not known 04/21/200911/16 Overview: Per Obesity Taxonomy documented as of this encounter (statuses as of 06/18/2023) Immunizations Name Administration Dates Next Due COVID-19 mRNA, LNP-s, No Pre serve, 2-Dose Series ([employer]) 05/12/2021,10/29/2020,10/03/2020 Covid-19, Mrna, Lnp-s, Pf, B ivalent, [...] encounter Miscellaneous Notes * Telephone Encounter - Varinder Ponce [facility] - 06/18/2023 1:53 PM EDTSigned Prescriptions: Disp Refills Apixaban 5 MG Oral Tablet (Eliquis) 180 Ta*2 Sig: TAKE 1 TABLET BY MOUTH EVERY MORNING AND 1 TABLET BEFORE BEDTIMEAuthorizing Provider: JESSICA CEDILLOOrdering User: VARINDER PONCE documented in this encounter Plan of Treatment Upcoming Encounters Date Type Department Care Team (Late st Contact Info) Description 08/27/2023 11:40 AM EST Office Visit Family Practice [facility] [address] [place] [address] Jessica Cedillo, DO [address] [place] [address] 10/03/2023 8:00 AM EST Office Visit Cardiology, [facility] [address] [place] [address] Meño Goode DO [address] [place] [address] Scheduled Procedures Name Priority Associated Diagnoses Date/Ti [...] as of this encounter Visit Diagnoses Diagnosis Atrial fibrillation, unspecified type (HCC) documented in this encounter Care Teams Acupressurist Relationship Specialty Start Date End Date Jessica Cedillo DO [address] [place] [address] PCP - General Family Medicine 10/01/18 documented as of this encounter
--- OUTSIDE RECORDS SUMMARY | 2023-07-24 04:29 | External Medical Summary ---
Author Name Unknown Address Unknown Organization K01:[facility] [place] - [address] [place] [address] Laboratory Report Ordering Provider Test Date Status SHAW LOPEZ 05/25/2023 08:31:20 Final Observation Date Value Abnormality Reference (Units ) Status Uric Acid 05/25/2023 08:31:20 6.1 3.4-7.0 (m g/dL) Final Performing Location [facility] [place] - [address] [place] [address]
--- OUTSIDE RECORDS SUMMARY | 2023-07-24 04:29 | External Medical Summary | Summary of Care ---
Author Name Unknown Organization [facility] Address [address] [place] [address] Phone [phone] Care Team Providers Care Clinical Assessment Manager Name Role Phone Ernesto Cedillo DO Primary Care Provider Reason for Visit * Reason Comments Gout Encounter Details Date Type Department Care Team Description 05/24/2023 Office Visit Family Practice [facility] [address] [place] [address] Ernesto Cedillo DO [address] [facility] [place] [address] Idiopathic gout, unspecified chronicity, unspecified site*; Morbid obesity due to excess calories (HCC); Chronic atrial fibrillation (HCC); Essential (primary) hypertension; Gastro-esophageal reflux disease without esophagitis; BMI 40.0-44.9, adult (HCC); skilled nursing current use of anticoagulant therapy Allergies Active Allergy Reactions Severity Noted Date Comments Sulfa Antibiotics Unknown 04/08/2008 As child documented as of this encounter (statuses as of 05/24/2023) Medications Medication Sig Dispensed Refills Start Date End Date Status Lisinopril 5 MG Oral Tablet (Prinivil) Take 1 Tablet by mouth in the morning. 0 Active Rosuvastatin Calcium 20 MG Oral Tablet (Crestor) TAKE ONE TABLET BY MOUTH EVERY DAY IN THE MORNING 100 Tablet 3 06/12/2022 06/12/2023 Active Additional Information Patient taking differently:20 mg [...] MOUTH EVERY MORNING 90 Tablet 3 06/12/2022 06/17/2023 Active Famotidine 20 MG Oral Tablet (Pepcid) Take 1 Tablet by mouth in the morning and 1 Tablet before bedtime. 180 Tablet 3 05/18/2023 08/20/2023 Active predniSONE 20 MG Oral Tablet (Deltasone)Indicat ions:Idiopathic gout, unspecified chronicity, unspecified site Take 2 Tablets by mouth in the morning for 5 days. 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 08/18/2003 Overview: ICD-10 update of inactive term Other primary cardiomyopathies 3 Anticoagulation management encounter 09/2002 Atrial fibrillation 11/13/2002 documented as of this encounter (statuses as of 05/24/2023) Resolved Problems Problem Noted Date Resolved Date Other cardiomyopathies 11/28/2021 2 Chronic atrial fibrillation 09/04/2019 012 01/2021 Coagulation defect 03/03/2019 03/04/2020 Obesity, morbid (more than 1 00 lbs over ideal weight or BMI > 40) 11/16/2009 02/01/2023 Overview: Per Obesity Taxonomy ICD-10 update of inactive term Obesity, BMI not known 04/21/2009 0 Overview: Per Obesity Taxonomy documented as of this encounter (statuses as of 05/24/2023) Immunizations Name Administration Dates Next Due COVID-19 mRNA, LNP-s, No Pre serve, 2-Dose Series ([employer]) 05/12/2021,10/29/2020,10/03/2020 Covid-19, Mrna, Lnp-s, Pf, B ivalent, [...] Date Smoking Tobacco: Never Smokeless Tobacco: Never Tobacco Cessation:Counseling Given: Not Answered Alcohol Use Standard Drinks/Week Comments Yes 0 (1 standard drink = 0.6 oz pur e alcohol) 2-3 daily Food Insecurity Answer Date Recorded Within the past 12 months, y ou worried that your food would run out before you got money to buy more. Never true 05/24/2023 Within the past 12 months, t he food you bought just didn't last and you didn't have money to get more. Never true 05/24/2023 Sex Assigned at Date Recorded Male 09/04/2019 8:[address] Job Start Date Occupation Industry Not on file Not on file Not on file documented as of this encounter Last Filed Vital Signs Vital Sign Reading Time Taken Comments Blood Pressure 108/72 05/24/2023 2:40 PM EDT Pulse 76 05/24/2023 2:40 PM EDT Temperature 36.2 C (97.2 F) 05/24/2023 2:40 PM ED T Respiratory Rate 16 05/24/2023 2:40 PM EDT Oxygen Saturation 98% 05/24/2023 2:40 PM EDT Inhaled Oxygen Concentration - - Weight 152.2 kg (335 lb 8 oz) 05/24/2023 2:40 PM EDT Height - - Body Mass Index 41.93 08/17/2022 3:46 PM EST documented in this encounter Patient Instructions * Patient Instructions* Ernesto Cedillo, DO - 05/24/2023 3:00 PM EDT BMI (Body Mass Index) is the number obtained by dividing a person's weight in kilograms by his or her height in meters squared. BMI is used in determining obesity. BMI is not used to determine a person's actual percentage of body fat, but it is a good tool to imaging clerk weight in terms of what is healthy and unhealthy. It is used to identify adults at increased risk for developing weight related medical problems. Estimated body mass index is 41.93 kg/m as calculated from the following: Height as of 08/17/22: 1.905 m (6' 3"). Weight as of this encounter: 152.2 kg (335 lb 8 oz). Severe Obesity - BMI 40 kg/m2 and above - Severely obese individuals are at a very high risk for developing: * Heart disease * Stroke * Diabetes * High Blood Pressure * High Cholesterol * GERD (acid reflux) * Sleep Apnea * Osteoarthritis * Fatty Liver Disease * Certain Types of Cancers * Gout * Gall Bladder Disease - Weight loss has been shown to decrease weight related medical problems. - A BMI of 40 kg/m2 or higher decreases lifespan by 10 yrs, compared to those with a normal BMI. - A 12-week weight management text message program is also available. Go to [employer] and seethe message under '[facility]' for more information and enrollment. Patient is Instructed to: Diet: * Limit total fat intake to no more than 40 grams per day (low fat diet). * Increase fruits and vegetables to 5 servings per day, combined. * Limited starches (breads, pasta, rice, potatoes, corn, cereals) to 4 servings per day. Avoid Calorie Containing Drinks: * No fruit juices, regular sodas or sweetened drinks. * Water is preferred - 64 ounces per day unless advised of a fluid restriction. * Diet sodas and drinks permitted. Keep Honest, Accurate Food logs: * www.[employer] * www.[employer] * If you bite it - write it! Weigh Yourself Weekly: * Morning is best. * Try to do this outside your home. * Have a friend/spouse remind you to weigh yourself, accountability to others helps. Perform 30 minutes of physical activity daily: * Can do all at once or 5 minutes 6 times per day * 8, 000-10,000 steps per day using a pedometer * Make it fun! documented in this encounter Progress Notes * Ernesto Cedillo DO - 05/24/2023 3:00 PM EDT Images from the original note were not included. Assessment and Plan Idiopathic gout, unspecified chronicity, unspecified site Likely L big toe gout Will treat and get x-rays And f/u with uric acid level prior to follow up appointment - URIC ACID; Future - predniSONE 20 MG Oral Tablet (Deltasone); Take 2 Tablets by mouth in the morning for 5 days. 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 HENT: Head: Normocephalic and atraumatic. Eyes: Extraocular Movements: Extraocular movements intact. Pupils: Pupils are equal, round, and reactive to light. Cardiovascular: Rate and Rhythm: Normal rate and regular rhythm. Pulmonary: Effort: Pulmonary effort is normal. Breath sounds: Normal breath sounds. Musculoskeletal: Comments: L great toe redness and pain With joint at MCP joint pain Neurological: General: No focal deficit present. Mental Status: He is alert and oriented to person, place, and time. Psychiatric: Mood and Affect: Mood normal. Behavior: Behavior normal. Wrap-Up Time: Total time today was 25 minutes excluding any time spent in the performance of separately billed services. Patient counseling on weight management given. documented in this encounter Plan of Treatment Upcoming Encounters Date Type Specialty Care Team Description 08/27/2023 Office Visit Family Medicine Ernesto Cedillo DO [address] [place] [address] 10/03/2023 Office Visit Cardiology Meño Goode DO [address] [place] [id number] Pending Results Name Type Priority Associated Diagnoses Date /Time XR FOOT 3 OR MORE VIEWS Medical Imaging Routine Idiopathic gout, unspecified chronicity, unspecified site 05/24/2023 3:19 PM EDT Scheduled Orders Name Type Priority Associated Diagnoses Orde r Schedule URIC ACID Lab Routine Idiopathic gout, unspecified chronicity, unspecified site Expected: 05/24/2023 (Approximate), Expires: 05/23/2024 Scheduled Procedures Name Priority Associated Diagnoses Date/Ti me COLONOSCOPY FLEXIBLE PROXIMAL DIAGNOSTIC Recall History of colon polyps Health Maintenance Due Date Last Done Comments Depression Screening 11/28/2022 11/28/2021 COVID-19 Vaccine ( season) 2023 06/13/2022, 05/12/2021, 10/29/2020, Additional history exists Influenza Vaccine (FLU shot) (#1) 2023 05/16/2022, [...] Additional history exists Colorectal Cancer Screening Discontinued Fecal Occult Blood Test Discontinued GARDASIL-HPV IMMUNIZATION [...] as of this encounter Visit Diagnoses Diagnosis Idiopathic gout, unspecified chronicity, unspecified site- Primary Morbid obesity due to excess calories (HCC) Chronic atrial fibrillation (HCC) Atrial fibrillation Essential (primary) hypertension Unspecified essential hypertension Gastro-esophageal reflux disease without esophagitis Esophageal reflux BMI 40.0-44.9, adult (HCC) Body Mass Index 40.0-44.9, adult 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
--- OUTSIDE RECORDS SUMMARY | 2023-07-24 04:29 | External Medical Summary | Summary of Care ---
Author Name Unknown Organization [facility] Address [address] [place] [address] Phone [phone] Care Team Providers Care Lease Administration Supervisor Name Role Phone Ernesto Cedillo DO Primary Care Provider Encounter Details Date Type Department Care Team Description 03/13/2023 Orders Only Family Practice [facility] [address] [facility] [place] [address] Ernesto [facility]edillo DO [address] [facility] [address] Allergies Active Allergy Reactions Severity Noted Date Comments Sulfa Antibiotics Unknown 04/08/2008 As child documented as of this encounter (statuses as of 03/13/2023) Medications Medication Sig Dispensed Refills Start Date [...] TABLET BEFORE BEDTIME 180 Tablet 3 06/12/2022 06/12/2023 Active Metoprolol Succinate ER 25 MG Oral Tablet Extended Release 24 Hour (toPROL XL) TAKE ONE TABLET BY MOUTH EVERY MORNING 90 Tablet 3 06/12/2022 06/12/2023 Active documented as of this encounter (statuses as of 03/13/2023) Active Problems Problem Noted Date Essential (primary) hypertension 023 BMI 40.0-44.9, adult 01/03/2023 Need for qdzjeikysm-cqujvjz-pkgddmtkp (T dap) vaccine 01/03/2023 Hyperlipidemia 11/28/2021 Gastro-esophageal reflux disease without esophagitis 09/04/2019 Prediabetes 03/31/2019 Overview: Per Prediabetes protocol prison current use of anticoagulant t herapy 08/18/2003 Overview: ICD-10 update of inactive term Other primary cardiomyopathies 3 Anticoagulation management encounter 09/2002 Atrial fibrillation 11/13/2002 documented as of this encounter (statuses as of 03/13/2023) Resolved Problems Problem Noted Date Resolved Date Other cardiomyopathies 11/28/2021 Chronic atrial fibrillation 09/04/201908/21 Coagulation defect 03/03/2019 03/04/2020 Obesity, morbid (more than 1 00 lbs over ideal weight or BMI > 40) 11/16/2009 02/01/2023 Overview: Per Obesity Taxonomy ICD-10 update of inactive term Obesity, BMI not known 04/21/2009 0 Overview: Per Obesity Taxonomy documented as of this encounter (statuses as of 03/13/2023) Immunizations Name Administration Dates Next Due COVID-19 mRNA, LNP-s, No Pre serve, 2-Dose Series ([employer]) 05/12/2021,10/29/2020,10/03/2020 Covid-19, Mrna, Lnp-s, Pf, B ivalent, 30 Mcg, IM, 12 yrs and above ([employer]) 06/13/2022 Pneumococcal Conjugate Vacc, 13 Valent (Prevnar) 01/01/2018 Pneumococcal Polysaccharide PPV23 (Pneumovax) 03/03/2019 Seasonal Influenza, Quadriva lent Hd (Fluzone Hd) 05/16/2022 Seasonal Influenza, Quadriva lent, No Preserve, 6 Mons & Above, IM 05/02/2021 Seasonal Influenza, Quadriva lent, No Preserve, IM [...] got money to buy more. Never true 09/04/2019 Within the past 12 months, t he food you bought just didn't last and you didn't have money to get more. Never true 09/04/2019 Sex Assigned at Date Recorded Male 09/04/2019 8:[address] Job Start Date Occupation Industry Not on file Not on file Not on file documented as of this encounter Plan of Treatment Upcoming Encounters Date Type Specialty Care Team Description 04/24/2023 Cardiac Studies Cardiac Studies 08/27/2023 Office Visit Family Medicine Ernesto Cedillo DO [address] [place] [address] 10/03/2023 Office Visit Cardiology Meño Goode DO [address] [place] [address] Scheduled Procedures Name Priority Associated Diagnoses Date/Ti me COLONOSCOPY FLEXIBLE PROXIMAL DIAGNOSTIC Recall History of colon polyps Health Maintenance Due Date Last Done Comments Depression Screening, Annual for Pts 12 and Over 11/28/2022 11/28/2021 Influenza Vaccine (FLU shot) (#1) 2023 05/16/2022, 05/02/2021, 05/04/2020, Additional history exists GFR 06/06/2023 03/06/2023, 05/20, 11/23/2021, Additional history exists HbA1c 06/06/2023 06/06/2022, 04/0 01/2022, 04/27/2021, Additional history exists Pneumococcal Vaccine: 65+ Years (3 - PPSV23 or PCV20) 03/03/2024 03/03/2019, 01/01/2018 Albumin/Creatinine Ratio 06/06/2025 022, 04/27/2021, 09/08/2020, Additional history exists COLONOSCOPY-EVERY 3 YRS AGES 18-100 08/24/2025 08/24/2022, 08/24/2022, 01/13/2022, Additional history exists Lipid Panel 05/02/2027 05/02/2022, 04/0 01/2022, 04/27/2021, Additional history exists DTaP,Tdap,and Td Vaccines (2 - Td or Tdap) 01/02/2028 01/01/2018, 06/30/2003 Zoster Vaccines Completed 07/01/2018, 04/04/2018 Cologuard Discontinued 11/30/2021, 04/0 01/2022, 11/23/2021, Additional history exists COVID-19 Vaccine Completed 06/13/2022, , 10/29/2020, Additional history exists Colonoscopy Discontinued 08/24/2022, 0 12/2022, 01/13/2022, Additional history exists Colorectal Cancer [...] Not on filedocumented as of this encounter Procedures Procedure Name Priority Date/Time Associated Diagnosis Comments CHEMISTRY-OUTSIDE Routine 03/06/2023 documented in this encounter Results * CHEMISTRY-OUTSIDE (03/06/2023) Not all results display below - see scan for full detail OUTSIDE LAB (SEE SCANNED REPORT) Comment:SCAN INCL: ED LABS: CBCD, BMP, HEPATIC FUNCT, LIPASE CREATININE-OUTSID E LAB 0.95 MG/DL OUTSIDE LAB (SEE SCANNED REPORT) EGFR-OUTSIDE LAB 88 OUT SIDE LAB (SEE SCANNED REPORT) POTASSIUM-OUTSIDE LAB 4.0 MMOL/L OUTSIDE LAB (SEE SCANNED REPORT) GLUCOSE-OUTSIDE LAB 137 MG/DL OUTSIDE LAB (SEE SCANNED REPORT) HOURS FASTING OUTSID E LAB (SEE SCANNED REPORT) TRIGLYCERIDES-OUT SIDE LAB OUTSIDE LAB (SEE SCANNED REPORT) CHOLESTEROL-OUTSI DE LAB OUTSIDE LAB (SEE SCANNED REPORT) HDL-OUTSIDE LAB OUTS OLEG LAB (SEE SCANNED REPORT) CHOL/HDL RATIO-OUTSIDE LAB OUTSIDE LA B (SEE SCANNED REPORT) LDL (CALCULATED)-OUTS OLEG LAB OUTSIDE LAB (SEE SCANNED REPORT) LDL (DIRECT MEASURE)-OUTSIDE LAB OUTSIDE LAB (SEE SCANNED REPORT) HEMOGLOBIN, S6F-ORHWPOH LAB OUTSIDE LAB (SEE SCANNED REPORT) PHOSPHORUS-OUTSID E LAB OUTSIDE LAB (SEE SCANNED REPORT) PTH-OUTSIDE LAB OUTS OLEG LAB (SEE SCANNED REPORT) MICROALBUMIN RATIO-OUTSIDE LAB OUTSIDE LA B (SEE SCANNED REPORT) PROTEIN, UA-OUTSIDE LAB OUTSIDE LAB (SEE SCANNED REPORT) HEMOGLOBIN-OUTSID E LAB 16.9 G/DL OUTSIDE LAB (SEE SCANNED REPORT) 03/06/2023 History Per Patient LABORATORY OUTSIDE LAB (SEE SCANNED REPORT) documented in this encounter Care Teams Lease Administration Supervisor Relationship Specialty Start Date End Date Ernesto Cedillo DO [address] [place] [address] PCP - General Family Medicine 10/01/18 documented as of this encounter
--- OUTSIDE RECORDS SUMMARY | 2023-07-24 04:29 | External Medical Summary | Summary of Care ---
Author Name Unknown Organization [facility] Address [address] [place] [address] Phone [phone] Care Team Providers Care Buffet Runner Name Role Phone Ernesto Cedillo DO Primary Care Provider Reason for Visit * Reason Comments Outpatient Testing Encounter Details Date Type Department Care Team Description 05/25/2023 Laboratory Laboratory [facility] [place] [address] [place] [address] [facility] [address] [place] [address] Idiopathic gout, unspecified chronicity, unspecified site Allergies Active Allergy Reactions Severity Noted Date Comments Sulfa Antibiotics Unknown 04/08/2008 As child documented as of this encounter (statuses as of 05/25/2023) Medications Medication Sig Dispensed Refills Start Date [...] as of this encounter (statuses as of 05/25/2023) Active Problems Problem Noted Date Essential (primary) hypertension 023 BMI 40.0-44.9, adult 01/03/2023 Need for mibfqvkogf-rdzvrzu-rmtshqkcn (T dap) vaccine 01/03/2023 Hyperlipidemia 11/28/2021 Gastro-esophageal reflux disease without esophagitis 09/04/2019 Prediabetes 03/31/2019 Overview: Per Prediabetes protocol 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 t herapy 08/18/2003 Overview: ICD-10 update of inactive term Other primary cardiomyopathies 3 Anticoagulation management encounter 09/2002 Atrial fibrillation 11/13/2002 documented as of this encounter (statuses as of 05/25/2023) Resolved Problems Problem Noted Date Resolved Date Other cardiomyopathies 11/28/2021 2 Chronic atrial fibrillation 09/04/20192 01/2021 Coagulation defect 03/03/2019 03/04/2020 Obesity, morbid (more than 1 00 lbs over ideal weight or BMI > 40) 11/16/2009 02/01/2023 Overview: Per Obesity Taxonomy ICD-10 update of inactive term Obesity, BMI not known 04/21/2009 0 Overview: Per Obesity Taxonomy documented as of this encounter (statuses as of 05/25/2023) Immunizations Name Administration Dates Next Due COVID-19 mRNA, LNP-s, No Pre serve, 2-Dose Series ([employer]) 05/12/2021,10/29/2020,10/03/2020 Covid-19, Mrna, Lnp-s, Pf, B ivalent, [...] Description 08/27/2023 Office Visit Family Medicine Ernesto Cedillo, DO [address] [place] [address] 10/03/2023 Office Visit Cardiology Meño Goode, [address] [place] [address] Pending Results Name Type Priority Associated Diagnoses Date /Time URIC ACID Lab Routine Idiopathic gout, unspecified chronicity, unspecified site 05/25/2023 8:31 AM EDT Scheduled Procedures Name Priority Associated Diagnoses Date/Ti [...] Vaccines Completed 07/01/2018, 04/04/2018 Cologuard Discontinued 11/30/2021, 01/2022, 11/23/2021, Additional history exists Colonoscopy Discontinued [...] Diagnoses Diagnosis Idiopathic gout, unspecified chronicity, unspecified site documented in this encounter Care Teams Buffet Runner Relationship Specialty Start Date End Date Ernesto Cedillo DO [address] [place] [address] PCP - General Family Medicine 10/01/18 documented as of this encounter
[2023-07-24 05:22] LABS: Basophils # (auto) 0.02 K/uL (0.00-0.20); Basophils % (auto) 0.3 %; Eosinophils % (auto) 1.5 %; Hematocrit (blood only) 44.4 % (42.0-52.0); Immature Granulocytes # (auto) 0.04 K/uL (0.01-0.20); Immature Granulocytes % (auto) 0.6 %; Lymphocytes # (auto) 1.16 K/uL (1.20-3.40); Lymphocytes % (auto) 17.7 %; Mean Corpuscular Hgb Conc 33.8 g/dL (32.0-36.0); Mean Corpuscular Volume 91.7 fL (80.0-100.0); Mean Platelet Volume 10.1 fL (9.4-12.4); Monocytes # (auto) 0.61 K/uL (0.11-0.59); Monocytes % (auto) 9.3 %; Neutrophils # (auto) 4.62 K/uL (1.40-6.50); Neutrophils % (auto) 70.6 %; Platelet Count 183 K/uL (130-400); RDW Coefficient of Variation 12.3 % (11.5-14.5); RDW Standard Deviation 41.5 fL (36.4-46.3); Red Blood Count 4.84 M/uL (4.70-6.10); White Blood Count 6.55 K/ul (4.8-10.8)
[2023-07-24 05:34] LABS: Calcium 9.2 mg/dl (8.6-10.3); Est GFR (Non-African American) 88.9 ml/min; Potassium 4.4 mmol/L (3.5-5.1)
--- NOTE | 2023-07-24 07:46 | XRay Report ---
SINGLE VIEW CHEST CLINICAL HISTORY: Cough. Recent Covid. FINDINGS: 2 PA chest radiographs are compared to study dated 12/28/2017. The heart is enlarged. The pu lmonary vasculature is noncongested. The lungs and pleural spaces are clear. No pneumothorax is seen. The bony thorax is grossly intact. IMPRESSION: Cardiomegaly with no active disease in the chest. ACT 112: Negative or not required by law. Electronically signed by: Vijay Willingham M.D. 07/24/2023 7:44 AM
--- NOTE | 2023-07-24 08:28 | Communication Note ---
Date of Service: July 24, 2023
[2023-07-24] MEDS ORDERED: ROSUVASTATIN CALCIUM 20 MG TAB PO SCH (09:00)
[2023-07-24] MEDS ORDERED: APIXABAN 5 MG TABLET PO SCH (09:00)
--- NOTE | 2023-07-24 09:58 | Cardiac Catheterization ---
Cardiac Cath Procedure Brief Procedure Date July 24, 2023 Pre-Procedure Diagnosis Pre-Procedure Diagnosis: Valvular Disease AUC Score AUC Score: 7 Post-Procedure Diagnosis Post-Procedure Diagnosis: Normal Coronary Arteries Procedure(s) Performed Procedure(s) Performed: Coronary Angiography, Left Heart Cath, Right Heart Cath and LV Angiography Custom Tailor Apprentice Roberto Carlos Perkins MD Child Daycare Worker(s) Arslan Posada Estimated Blood Loss Estimated Blood Loss: <15cc Medication(s) Medication(s): Fentanyl (12.5 mcg IV), Heparin (5000 units IV), Lidocaine 1% (Local infiltration access site), Nicardipine (300 mcg intra-arterial after arterial sheath insertion) and Versed (1 mg IV) Preliminary Findings Impression: Normal coronary arteries with left dominant anatomy Normal LV systolic function Severe mitral insufficiency Normal right heart pressures Atrial septal defect with tzik-hs-ykrnv shunt Recommendations Recommendations: Management Recommendatons (Mitral valve repair, atrial septal defect closure) Specimens Specimens: None Fluids (cc crystalloids) Fluids (cc crystalloids): 160 Anesthesia Start time: 08, stop time: 952 Procedural Complication(s) None Disposition Sleeve Bottom Feller Holding/Recovery
--- NOTE | 2023-07-24 12:51 | Cardiology Consultation ---
Date of Consultation July 24, 2023 Assessment & Plan (1) Persistent atrial fibrillation: (2) Atrial fibrillation with rapid ventricular response: (3) Morbid obesity: Plan 68-year-old male with longstanding persistent atrial fibrillation, left atrial enlargement, morbid obesity on chronic anticoagulation with apixaban, chronic rate control with metoprolol succinate Patient presents with acute COVID infection since 07/13/2023. Patient appropriately treated with Paxil. Sought ER evaluation due to shortness of breath cough and increasing sinus drainage Has responded to therapies in ER with initial heart rate significantly elevated Recommendations: Continue increased dose of metoprolol succinate 50 mg/day, continue apixaban Treat underlying sinusitis, URI Usual COVID restrictions no strenuous activity gradual resumption of activities Follow-up cardiology as scheduled Stable for discharge from cardiac standpoint History of Present Illness Reason for Consultation: Persistent atrial fibrillation with elevated ventricular response rate Requesting Physician: Dr. Pederson Attending Physician: Elizabeth Pederson MD History of Present Illness Patient is a 68-year-old male with ongoing chronic concern 1. Chronic atrial fibrillation rate controlled on chronic Eliquis anticoagulation with a chads Vasc score of 1 2. Hypertension 3. Dyslipidemia Patient presents now noting having felt poorly since being diagnosed with COVID 19 on . Did use Paxlovid. Last 2 days has had increasing sinus drainage thick green sputum. Check blood pressure and heart rates overnight and found it to be elevated Presented to the ER for further assessment. In addition to acute sinus complaints he was found to be in atrial fibrillation with increased ventricular response rate. Patient received single dose of IV metoprolol and increase in oral dosing of metoprolol succinate. Received 1 dose of IV antibiotics and IV fluids now clinically improved Heart rates 80s but do increase with active No chest pains, shortness of breath, orthopnea, peripheral edema. No current chills or fevers No acute weight gain or edema Physically active notes COVID symptoms have been waxing and waning with predominant issue increased sinus drainage and cough EKG on ER presentation atrial fibrillation with rapid response, left anterior fascicular block (old) Chest x-ray with cardiomegaly without infiltrate or edema Allergies Allergy/AdvReac Type Severity Reaction Status Date / Time No Known Allergies Allergy Unknown Verified 12/27/17 18:40 Home Medications Medication Instructions Recorded Confirmed Type Metoprolol Succinate (Metoprolol 25 mg PO QAM #30 tabs 12/28/17 07/24/23 Rx Succinate ER) apixaban 5 mg tablet (Eliquis) 5 mg PO BID 07/24/23 07/24/23 History famotidine 20 mg tablet (Pepcid) 20 mg PO ONCE PRN Acid Reflux 07/24/23 07/24/23 History rosuvastatin 20 mg tablet (Crestor) 20 mg PO ONCE 07/24/23 07/24/23 History Patient History Social History Smoking Status: Never smoker Hx Alcohol Use: Yes Alcohol type: wine Hx Substance Use: No Preferred Language: Senegalese Communication Ability: Effective Motor Transport Inspector Required: No Beliefs That Will Affect Care: None Current Living Situation: Spouse Other Information That Helps Us Care for You: No Feels Safe at Home: Yes Safety Concerns: Feels Safe At This Time Assistive Devices: Contacts Review of Systems Review of Systems: All systems reviewed & are unremarkable except as noted in HPI & below Physical Exam Constitutional: + obese; no acute distress Eyes: PERRL, conjunctivae normal, anicteric sclerae Neck: + thick neck Respiratory: Auscultation: + diminished lung sounds Cardiovascular: Rate/Rhythm: + irregularly irregular Heart Sounds: normal S1 and normal S2; no murmur Vessels: no JVD Extremities: no edema Gastrointestinal (Abdomen): normal bowel sounds, soft, nontender, no hepatosplenomegaly Musculoskeletal: no cyanosis or clubbing, extremities motor strength 5/5 Results & Data Vital Signs (Past 12 Hours) Vital Signs Pulse Resp BP Pulse Ox O2 Del Method 07/24/23 11:00 118/89 07/24/23 11:00 76 20 94 Room Air 07/24/23 10:00 94 H 15 94 Room Air 07/24/23 10:00 123/92 07/24/23 09:30 134/79 07/24/23 09:30 83 16 07/24/23 09:01 81 17 95 07/24/23 09:01 126/85 07/24/23 09:00 78 17 97 07/24/23 08:30 122/87 07/24/23 08:30 75 22 96 Room Air 07/24/23 08:00 122/93 07/24/23 08:00 70 20 93 Room Air 07/24/23 07:30 141/96 H 07/24/23 07:30 65 19 96 07/24/23 07:06 70 07/24/23 07:00 103/62 07/24/23 07:00 68 18 92 07/24/23 06:31 75 22 104/57 L 95 Room Air 07/24/23 06:00 87 22 115/79 95 Room Air 07/24/23 05:31 67 19 104/70 94 Room Air 07/24/23 05:00 84 21 144/107 H 96 Room Air 07/24/23 04:30 85 16 137/99 96 Room Air 07/24/23 04:00 85 18 143/99 H 93 Room Air 07/24/23 03:30 89 18 153/104 H 94 Room Air 07/24/23 03:02 92 H 23 138/101 H 95 Room Air 07/24/23 02:30 89 20 155/108 H 95 Room Air 07/24/23 02:00 89 18 148/111 H 95 Room Air 07/24/23 01:30 95 H 18 141/100 H 96 Room Air 07/24/23 01:27 90 140/102 H 07/24/23 01:00 87 19 142/90 H 95 Room Air Laboratory Results Laboratory Results - last 24 hr 07/23/23 07/24/23 07/24/23 22:50 04:42 Unknown WBC 8.06 6.55 RBC 5.02 4.84 Hgb 15.8 15.0 Hct 46.4 44.4 MCV 92.4 91.7 MCH 31.5 31.0 MCHC 34.1 33.8 RDW Std Deviation 41.6 41.5 RDW Coeff of Azam 12.3 12.3 Plt Count 210 183 MPV 10.0 10.1 Immature Gran % (Auto) 0.6 0.6 Neut % (Auto) 73.7 70.6 Lymph % (Auto) 13.6 17.7 [place] % (Auto) 10.5 9.3 Eos % (Auto) 1.2 1.5 Baso % (Auto) 0.4 0.3 Neut # (Auto) 5.93 4.62 Lymph # (Auto) 1.10 L 1.16 L [place] # (Auto) 0.85 H 0.61 H Eos # (Auto) 0.10 0.10 Baso # (Auto) 0.03 0.02 Immature Gran # (Auto) 0.05 0.04 PT 11.7 INR 1.1 Sodium 138 138 Potassium 4.5 4.4 Chloride 103 105 Carbon Dioxide 26 25 Anion Gap 9 8 BUN 16 15 Creatinine 1.02 0.88 Est Cr Clr Drug Dosing 100.5 115.0 Est GFR ( Amer) 88.4 103.0 Est GFR (Non-Af Amer) 76.2 88.9 BUN/Creatinine Ratio 15.7 17.0 Glucose 118 H 120 H Calcium 9.7 9.2 Magnesium 2.0 Total Bilirubin 0.5 AST 43 H ALT 47 Alkaline Phosphatase 64 Total Protein 7.3 Albumin 4.3 Globulin 3.0 Albumin/Globulin Ratio 1.4 TSH 3.339 SARS-CoV-2 (PCR) POSITIVE A* Influenza Type A (PCR) Negative Influenza Type B (PCR) Negative RSV (RT-PCR) Negative Diagnostic Findings Echocardiogram 05/22/2020 There was atrial fibrillation during the examination. The left ventricular cavity size is normal. The septal motion is abnormal consistent with intrventricular conduction delay. The remaining left ventricular wall segments are borderline hypokinetic. The qualitative LV ejection fraction is 45-49% (mildly reduced). The left ventricular diastolic function is abnormal by 2-D findings. The left atrium is severely enlarged (>48 ml/m^2,). No significant valvular disease observed with fair visualization of valve structures, normal Doppler examination ECG Rhythm: atrial fibrillation Findings: + LAFB
--- NOTE | 2023-07-24 13:46 | Electrocardiogram Report ---
Test Reason : Blood Pressure : / mmHG Vent. Rate : 151 BPM Atrial Rate : 000 BPM P-R Int : 000 ms QRS Dur : 090 ms QT Int : 288 ms P-R-T Axes : 000 -59 085 degrees QTc Int : 456 ms Atrial fibrillation with rapid ventricular response Left axis deviation Inferior infarct , age undetermined Poor R wave progression, consider anterior KS vs. lead placement vs. LVH Abnormal ECG When compared with ECG of 28-DEC-2017 06:27, Significant changes have occurred Confirmed by Erich Chaudhari ([id number]) on 07/24/2023 1:45:53 PM Referred By: REFERRED SELF Confirmed By:Erich Chaudhari
--- NOTE | 2023-07-24 16:15 | Discharge Summary ---
Discharge Summary Date of Service July 24, 2023 Notes For Next Care Provider Please ensure close follow up with cardiology Medication Changes From Visit Metoprolol succinate increased to 50mg daily Admission HPI Per Admitting Provider History obtained from patient and records. Medical history significant for chronic systolic heart failure (EF 45%, TTE 2022), A-fib on Eliquis, hypertension, hyperlipidemia, prediabetes, GERD. Last confinement 2017 for chest pain. Exercise stress echo negative for inducible ischemia. 2 weeks ago, patient noticed sinus congestion later followed by cough productive of junky yellow sputum. Generalized achiness without fever, shortness of breath, or chest pain. Positive COVID-19 test at home. Patient completed outpatient Paxlovid course. Improved achiness but persistent sinus congestion/drainage at the back of his throat causing some trouble with swallowing. No headache, no chest pain, no SOB. Denies fluid retention. Patient compliant with home medications. Denies OTC decongestant use. Patient consulted ER for troublesome symptoms. Patient noted to be rapid A-fib upon arrival at the ER. Heart rate 1 20-1 60s. 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 Admission Exam Per Admitting Provider GENERAL: Comfortable, obese, pleasant, no respiratory distress SKIN: Normal color, warm HEENT: Alopecia, pink palpebral conjunctivae, no ptosis, dry buccal mucosa, minimal congestion posterior pharyngeal wall NECK : Supple, short neck, no tenderness CHEST : CTA, no tenderness HEART : Irregular, no obvious murmurs ABDOMEN: Some distention, nontender EXTREMITIES : No LE swelling/tenderness, no other conspicuous deformities noted NEUROLOGIC : Coherent, no facial asymmetry, no other gross focality Principal Dx & Hospital Course #1 = Principal Diagnosis (1) Atrial fibrillation with rapid ventricular response: (2) Viral URI: (3) Morbid obesity: Plan Pt is a 68yoM with PMHx significant for chronic systolic heart failure (EF 45%, TTE 2022), A-fib on Eliquis, hypertension, hyperlipidemia, prediabetes, GERD admitted with atrial fibrillation with RVR in the setting of a covid infection. COVID Infection Atrial fibrillation with RVR Bacterial Sinusitis Pt with discomfort from sinus congestion from recent COVID-19 illness status post Paxlovid Rx This caused him to present to the ED Found to be in a fib with RVR with HR as high as 169 Received 1 dose of IV Lopressor 5mg Home metoprolol succinate 25mg dose increased to 50mg daily, rate control achieved Cardiology consulted, recommended discharge home with above metoprolol 50mg daily dose and continue with home anticoagulation of Eliquis 5mg BID Superimposed bacterial infection given persistent colored drainage- also discharged with Augmentin 875mg BID for a total of 10 days of treatment after receiving a dose of Unasyn in the hospital Followup with cardiology as scheduled chronic systolic heart failure (EF 45%, TTE 2022), stable hypertension, slight elevated , stable on discharge hyperlipidemia, on statin Rx, continue prediabetes, hemoglobin A1c of 5.6 last May 2022 PCP and cardiology follow up after discharge. Discharge Exam General: Alert, oriented. No acute distress Skin: No noted rashes or bruises Psych: Appropriate mood and affect Neuro: No gross deficits HEENT: NC/AT Chest: Nontender to palpation. CV: Irregular rate and rhythm Resp: Breath sounds decreased bilaterally, no increased effort of breathing. Abdomen: Soft, nontender Extremities: No edema in lower extremities bilaterally. Updated Medication List Medication Instructions Recorded Confirmed Type Metoprolol Succinate (Metoprolol 25 mg PO QAM #30 tabs 12/28/17 07/24/23 Rx Succinate ER) amoxicillin 875 mg-potassium 1 tab PO BIDM #19 tabs 07/24/23 Rx clavulanate 125 mg tablet apixaban 5 mg tablet (Eliquis) 5 mg PO BID 07/24/23 07/24/23 History famotidine 20 mg tablet (Pepcid) 20 mg PO ONCE PRN Acid Reflux 07/24/23 07/24/23 History metoprolol succinate 50 mg 50 mg PO QAM #30 tabs 07/24/23 Rx tablet,extended release 24 hr rosuvastatin 20 mg tablet (Crestor) 20 mg PO ONCE 07/24/23 07/24/23 History Hospital Stay Data Consultations 07/23/23 23:29 ED Decision to Admit Stat 07/24/23 08:04 Consult Cardiology Routine Diagnostic Imagining Performed Chest X-Ray 07/23/23 22:05 SINGLE VIEW CHEST CLINICAL HISTORY: Cough. Recent Covid. FINDINGS: 2 PA chest radiographs are compared to study dated 12/28/2017. The heart is enlarged. The pulmonary vasculature is noncongested. The lungs and pleural spaces are clear. No pneumothorax is seen. The bony thorax is grossly intact. IMPRESSION: Cardiomegaly with no active disease in the chest. ACT 112: Negative or not required by law. Electronically signed by: Vijay Willingham M.D. 07/24/2023 7:44 AM Pending Results Patient Have Any Pending Studies at Discharge: No Discharge Instructions Given to Patient (Per Discharging Provider) Mr. Grissom You were admitted with atrial fibrillation with rapid ventricular rate. You were seen by the second hand and he is recommending that we discharge you home with an increased dose of your metoprolol succinate to 50mg (up from 25mg) to be taken daily. Continue your home Eliquis for anticoagulation. We are also treating you for a sinusitis with a 10 day course of the antibiotic Augmentin. You received your first dose of it while you were here. We recommend self isolation from covid for a total of 10 days from the start of your symptoms. Please continue to take your other home medications as prescribed. Please keep close follow up with your second hand and primary care provider after discharge. It was a pleasure taking care of you while you were here and Happy Birthday again! Total Time Total Time Spent Total Time Spent (In Minutes): > 30 minutes
[2023-07-24] MEDS ORDERED: AMOXICILLIN/CLAVULANATE 875 MG TAB PO SCH (20:00)
[2023-07-25] MEDS ORDERED: METOPROLOL SUCC 50MG EXT REL TAB PO SCH (09:00)
== END 2023-07-24 16:32 | disposition home or self-care (01) ==
LOC: ED 21:41 → INTOOBSV 07-24 02:35 → EDINP 07-24 02:35